=== PATIENT | male | born 1940 | race Caucasian/White ===

== ENCOUNTER → 2020-05-03 13:21 | Outpatient (BNVA) | payer MEDICARE, OTHER, SELFPAY | PROVIDERS: Family Provider Family Medicine; PCP Family Medicine; Visit Provider Urology | DX: C67.4 Malignant neoplasm of posterior wall of bladder (principal) | CPT/HCPCS: 81001 ==

== ENCOUNTER → 2021-05-01 12:59 | Outpatient (BNVA) | payer MEDICARE, OTHER, SELFPAY | PROVIDERS: PCP Family Medicine; Visit Provider Urology | DX: C67.4 Malignant neoplasm of posterior wall of bladder (principal) | CPT/HCPCS: 81003 ==

== ENCOUNTER → 2021-11-06 14:21 | Outpatient (BNVA) | payer MEDICARE, OTHER, SELFPAY | PROVIDERS: PCP Family Medicine; Visit Provider Urology | DX: C67.4 Malignant neoplasm of posterior wall of bladder (principal); R35.1 Nocturia | CPT/HCPCS: 81003 ==

== ENCOUNTER → 2022-03-15 10:14 | Outpatient (BNVA) | payer MEDICARE, OTHER, SELFPAY | PROVIDERS: PCP Family Medicine; Visit Provider Internal Medicine | DX: I25.10 Atherosclerotic heart disease of native coronary artery without angina pectoris (principal); I10 Essential (primary) hypertension; I48.91 Unspecified atrial fibrillation; G45.9 Transient cerebral ischemic attack, unspecified; E78.5 Hyperlipidemia, unspecified; E11.9 Type 2 diabetes mellitus without complications; Z87.891 Personal history of nicotine dependence; Z79.84 Long term (current) use of oral hypoglycemic drugs | CPT/HCPCS: 99213; 99214 ==

== ENCOUNTER → 2022-05-07 13:39 | Outpatient (BNVA) | payer MEDICARE, OTHER, SELFPAY | PROVIDERS: PCP Family Medicine; Visit Provider Urology | DX: C67.9 Malignant neoplasm of bladder, unspecified (principal); C67.4 Malignant neoplasm of posterior wall of bladder; R35.1 Nocturia | CPT/HCPCS: 52000; 81003 ==

== ENCOUNTER → 2022-11-04 10:15 | Outpatient (BNVA) | payer MEDICARE, OTHER, SELFPAY | PROVIDERS: PCP Family Medicine; Visit Provider Urology | DX: C67.9 Malignant neoplasm of bladder, unspecified (principal) | CPT/HCPCS: 52000; 81003 ==

== ENCOUNTER → 2022-12-13 09:29 | Outpatient (BNVA) | payer MEDICARE, OTHER, SELFPAY | PROVIDERS: PCP Family Medicine; Visit Provider Internal Medicine | DX: I25.10 Atherosclerotic heart disease of native coronary artery without angina pectoris (principal); I10 Essential (primary) hypertension; I48.91 Unspecified atrial fibrillation; E78.5 Hyperlipidemia, unspecified; E11.9 Type 2 diabetes mellitus without complications; Z79.84 Long term (current) use of oral hypoglycemic drugs; Z86.73 Personal history of transient ischemic attack (TIA), and cerebral infarction without residual deficits; Z87.891 Personal history of nicotine dependence | CPT/HCPCS: 99213 ==

== ENCOUNTER → 2023-09-08 14:37 | Outpatient (BNVA) | payer MEDICARE, OTHER, SELFPAY | PROVIDERS: PCP Family Medicine; Visit Provider Internal Medicine | DX: I25.10 Atherosclerotic heart disease of native coronary artery without angina pectoris (principal); I10 Essential (primary) hypertension; I48.91 Unspecified atrial fibrillation; E78.5 Hyperlipidemia, unspecified; E11.9 Type 2 diabetes mellitus without complications; Z86.73 Personal history of transient ischemic attack (TIA), and cerebral infarction without residual deficits; Z79.84 Long term (current) use of oral hypoglycemic drugs; Z87.891 Personal history of nicotine dependence | CPT/HCPCS: 99214 ==

== ENCOUNTER 2023-10-25 02:40 | Emergency (ER) | payer MEDICARE, OTHER, SELFPAY ==
--- NOTE | 2023-10-25 02:42 | XRR_ITS ---
PROCEDURE INFORMATION: Exam: XR Chest Exam date and time: 10/25/2023 2:55 AM Age: 83 years old Clinical indication: Chest pressure; Prior surgery; Surgery date: 6+ months; Surgery type: Loop recorder; Patient HX: C/O chest pain; Additional info: Cp TECHNIQUE: Imaging protocol: Radiologic exam of the chest. Views: 1 view. COMPARISON: CR XR chest 2V* [id number] 09/29/2017 3:45 PM FINDINGS: Lungs: Unremarkable. No consolidation. Pleural spaces: Unremarkable. No pleural effusion. No pneumothorax. Heart/Mediastinum: Left chest implanted Loop recorder device noted. Borderline cardiomegaly. Bones/joints: Unremarkable. XR/XR chest 1V portable [id number] IMPRESSION: Negative for acute chest pathology.
--- NOTE | 2023-10-25 02:46 | ED_ITS ---
HPI - Chest Pain General: Chief Complaint: Chest Pain Stated Complaint: CHEST PAIN Time Seen by Provider: 10/25/23 02:41 Source: patient and EMS Mode of arrival: EMS Limitations: no limitations History of Present Illness: 83-year-old male states he has been having intermittent chest pains over the last 3 to 4 hours. States a pressure pain in the center of his chest radiates to the left arm. No known history of coronary artery disease does have a history of A-fib. Patient states his pain improved here with nitro is currently resolved. He denies any fever dyspnea Associated symptoms: Deny abdominal pain, dyspnea, fever(s), nausea or vomiting Review of Systems Const: Denies: fever(s), chills, body aches or change in appetite ENMT: Denies: throat pain or dental pain Card: Reports: chest pain Resp: Denies: dyspnea GI: Denies: abdominal pain, nausea, vomiting or diarrhea : Denies: dysuria Musc: Denies: neck pain or back pain Skin/Breast: Denies: rash Neuro: Denies: headache(s) PFSH ED PFSH: Medical History (Updated 10/25/23 @ 04:59 by Frantz Guardado MD) ASHD (arteriosclerotic heart disease) Atrial fibrillation Diabetes HTN (hypertension) Hyperlipidemia Obesity TIA (transient ischemic attack) Surgical History History of loop recorder History of transurethral destruction of bladder lesion Family History Mother , AT AGE 89 Diabetes Father , AT AGE 60 CAD (coronary artery disease) Social History Smoking and tobacco/nicotine status: former use of tobacco/nicotine Alcohol intake: never Household members: spouse Marital status: service: Yes branch: [employer] Current occupational status: retired Physical Exam Const: COMMON NORMALS: no acute distress, patient oriented x3 and healthy appearing HENMT: COMMON NORMALS: normocephalic and atraumatic HEAD & SCALP: normocephalic and atraumatic Eye: COMMON NORMALS: Equal, round and reactive pupils present and EOMs intact bilaterally PUPIL: Yes Equal, round and reactive pupils present Neck/C-Spine: COMMON NORMALS: full ROM and supple Chest: COMMONS NORMALS: normal inspection of the chest and normal palpation of entire chest wall Resp: COMMON NORMALS: normal respiratory effort, No retractions, No use of accessory muscles and clear to auscultation bilaterally AUSCULTATION: clear to auscultation bilaterally Cardio: COMMON NORMALS: regular rate, regular rhythm and No murmurs present (Cardio) RATE: regular rate RHYTHM: regular rhythm GI: COMMON NORMALS: Normal to inspection, nondistended, normoactive bowel sounds present, Soft to palpation, non-tender and no masses PALPATION: Yes Soft to palpation Extremity: COMMON NORMALS: normal to inspection and full ROM Neuro: COMMON NORMALS: patient oriented x3, moves all extremities and no focal motor deficits Psych: COMMON NORMALS: mental status grossly normal, Normal thought process present and cooperative THOUGHT PROCESS: Normal thought process present Skin: COMMON NORMALS: no rashes or lesions noted and no wounds GENERAL SKIN EXAM: no rashes or lesions noted Course Vital Signs: Vital signs: Vital Signs Temperature 98.5 F 10/25/23 02:51 Pulse Rate 51 L 10/25/23 04:25 Respiratory Rate 16 10/25/23 04:25 Blood Pressure 123/72 10/25/23 04:25 Pulse Oximetry 95 10/25/23 04:25 MDM - Chest Pain Medical Decision Making Patient presents for chest pain its been resolved since he has been here he states he has had reflux before and it felt similar his initial repeat troponins here are normal EKGs here is normal as well. He has no signs of pulm embolism or dissection no signs of acute coronary syndrome. He is to follow-up with his family and consumer sciences professor Dr. Hill. I did inform he has pain he is to return if worsening. Medical Records I reviewed the patient's medical records. Lab Data I reviewed the patient's lab results. 10/25/23 03:10 10/25/23 03:10 Radiology Impressions Chest X-Ray 10/25/23 02:42 IMPRESSION: Negative for acute chest pathology. Laboratory Results WBC 6.85 10^3/uL (3.29-11.43) 10/25/23 03:10 RBC 4.19 10^6/uL (3.85-5.65) 10/25/23 03:10 Hgb 13.90 g/dL (11.27-16.99) 10/25/23 03:10 Hct 40.1 % (37-53) 10/25/23 03:10 MCV 95.7 fl (82-101) 10/25/23 03:10 MCH 33.2 pg (27-33) H 10/25/23 03:10 MCHC 34.7 g/dL (30-55) 10/25/23 03:10 RDW 13.1 % (12.1-15.1) 10/25/23 03:10 Plt Count 203 10^3/cmm (157-399) 10/25/23 03:10 MPV 8.6 fL (7.4-10.4) 10/25/23 03:10 Neut % (Auto) 61.2 % 10/25/23 03:10 Lymph % (Auto) 23.9 % 10/25/23 03:10 [place] % (Auto) 11.8 % 10/25/23 03:10 Eos % (Auto) 2.5 % 10/25/23 03:10 Baso % (Auto) 0.3 % 10/25/23 03:10 Neut # (Auto) 4.19 10^3/uL (1.8-7.7) 10/25/23 03:10 Lymph # (Auto) 1.6 10^3/uL (0.8-4.8) 10/25/23 03:10 [place] # (Auto) 0.8 10^3/uL (0.2-0.9) 10/25/23 03:10 Eos # (Auto) 0.2 10^3/uL (0.0-0.8) 10/25/23 03:10 Baso # (Auto) 0.0 10^3/uL (0.0-0.1) 10/25/23 03:10 Nucleated RBC % (auto) 0 % 10/25/23 03:10 Nucleated RBCs # 0.0 /100WBC 10/25/23 03:10 PT 12.80 SECONDS (12.1-14.9) 10/25/23 03:10 INR 0.93 (0.8-1.2) 10/25/23 03:10 Sodium 138 mmol/L (136-145) 10/25/23 03:10 Potassium 4.1 mmol/L (3.5-5.1) 10/25/23 03:10 Chloride 104 mmol/L (98-107) 10/25/23 03:10 Carbon Dioxide 24 mmol/L (22-29) 10/25/23 03:10 Anion Gap 14.1 (5-19) 10/25/23 03:10 BUN 21 mg/dL (8-23) 10/25/23 03:10 Creatinine 1.1 mg/dL (0.7-1.2) 10/25/23 03:10 GFR Calculation Not Reportable 10/25/23 03:10 Glucose 122 mg/dL (65-115) H 10/25/23 03:10 Calculated Osmolality 290 mOsm/kg (285-295) 10/25/23 03:10 Calcium 9.5 mg/dL (8.5-10.5) 10/25/23 03:10 Total Bilirubin 0.3 mg/dL (0.15-1.2) 10/25/23 03:10 AST 14 U/L (0-40) 10/25/23 03:10 ALT 13 U/L (0-41) 10/25/23 03:10 Alkaline Phosphatase 44 U/L (40-130) 10/25/23 03:10 Troponin T Baseline 13 ng/L (0-15) 10/25/23 03:10 Troponin T 120 Minute 12.35 ng/L (0-15) 10/25/23 04:25 Delta Troponin T -0.65 ABS# (0-10) L 10/25/23 04:25 Total Protein 6.7 g/dL (6.6-8.7) 10/25/23 03:10 Albumin 4.0 g/dL (3.5-5.2) 10/25/23 03:10 Globulin 2.7 g/dL (1.3-4.6) 10/25/23 03:10 Lipase 16 U/L (13-60) 10/25/23 03:10 XR interpretation done by ED provider, pending radiology final review ED provider radiology interpretation(s): cxr no acute abnormality EKG Data EKG 1: I personally reviewed and interpreted this EKG as follows: EKG interpretation date: 10/25/23 EKG interpretation time: 02:46 Interpretation: sinus demarco hr [address] or t wave abnormalities qrs 104 qtc 408 Discharge Plan Discharge Patient Disposition: Home Clinical Impression: Chest pain Condition: Stable Prescriptions: No Action lidocaine HCl 2 % jelly 20 ml INTRA-URET ONCE Qty: 1 0RF multivitamin Tablet 1 tab PO DAILY clopidogrel 75 mg tablet 75 mg PO DAILY amlodipine-benazepril [Lotrel] 5-10 mg capsule 1 cap PO DAILY Januvia 100 mg tablet 100 mg PO DAILY magnesium 200 mg tablet 400 mg PO DAILY famotidine 20 mg tablet 20 mg PO DAILY propafenone 225 mg tablet 225 mg PO Q8H Qty: 270 3RF Discharge Orders: Discharge ED (Routine); Ordered 10/25/23 Ordered By: Frantz Guardado Referrals: Tommy Fermin M.D [Physician] - 1-3 days Discharge Diet: Advance as tolerated Discharge Activity: Resume usual activity Patient Instructions: Chest Pain (ED) Coding Level of Care Code ED Salesperson Art [employer] for Lisa Graff
--- NOTE | 2023-10-25 02:46 | ECG_ITS ---
[facility] Test Date: 2023-10-25 Pat Name: Gustavo Jhaveri Department: Room: Gender: Male Kitchenhand: : 1940 Requested By: Frantz Guardado Order Number: [id number] Jose Miguel MD: Uriel Bustamante M.D. Measurements Intervals [place] Rate: 52 P: 36 WV: 240 QRS: 31 QRSD: 104 T: 56 QT: 428 QTc: 400 Interpretive Statements SINUS BRADYCARDIA WITH FIRST DEGREE AV BLOCK Compared to ECG 04/26/2017 09:15:48 First degree AV block now present Inferior myocardial infarct finding no longer present Electronically Signed On 10-25-2023 13:51:07 CREATIVE SERVICES INTERN by Uriel Bustamante M.D. [id number]
[2023-10-25 02:51] VITALS: BP 153/74; PULSE 59; RESP 18; TEMP 36.9; O2SAT 94
[2023-10-25 03:20] VITALS: BP 117/63; PULSE 50; RESP 16; O2SAT 97
[2023-10-25 03:24] LABS: Basophils % 0.3 %; Eosinophils # 0.2 10^3/uL (0.0-0.8); Eosinophils % 2.5 %; Hematocrit 40.1 % (37-53); Lymphocytes # 1.6 10^3/uL (0.8-4.8); Lymphocytes % 23.9 %; Mean Corpuscular HGB Conc 34.7 g/dL (30-55); Mean Corpuscular Hemoglobin 33.2 pg (27-33); Mean Corpuscular Volume 95.7 fl (82-101); Mean Platelet Volume 8.6 fL (7.4-10.4); Monocytes # 0.8 10^3/uL (0.2-0.9); Monocytes % 11.8 %; Neutrophils # 4.19 10^3/uL (1.8-7.7); Neutrophils % 61.2 %; Nucleated Red Blood Cells % 0 %; Platelet Count 203 10^3/cmm (157-399); Red Blood Count 4.19 10^6/uL (3.85-5.65); Red Cell Distribution Width 13.1 % (12.1-15.1); White Blood Count 6.85 10^3/uL (3.29-11.43)
[2023-10-25 03:38] LABS: INR 0.93 (0.8-1.2)
[2023-10-25 03:41] LABS: Troponin(5th) Baseline 13 ng/L (0-15)
[2023-10-25 03:45] LABS: Alanine Aminotransferase 13 U/L (0-41); Alkaline Phosphatase 44 U/L (40-130); Anion Gap 14.1 (5-19); Aspartate Amino Transferase 14 U/L (0-40); Blood Urea Nitrogen 21 mg/dL (8-23); Calcium 9.5 mg/dL (8.5-10.5); Carbon Dioxide 24 mmol/L (22-29); Chloride 104 mmol/L (98-107); Globulin 2.7 g/dL (1.3-4.6); Glucose 122 mg/dL (65-115); Lipase 16 U/L (13-60); Osmolality Calculated 290 mOsm/kg (285-295); Potassium 4.1 mmol/L (3.5-5.1); Sodium 138 mmol/L (136-145); Total Bilirubin 0.3 mg/dL (0.15-1.2); Total Protein 6.7 g/dL (6.6-8.7)
[2023-10-25 04:25] VITALS: BP 123/72; PULSE 51; RESP 16; O2SAT 95
[2023-10-25 04:49] LABS: Troponin 5 2HR 12.35 ng/L (0-15); Troponin 5 2HR Delta -0.65 ABS# (0-10)
[2023-10-25 05:11] VITALS: BP 123/72; PULSE 51; RESP 16; TEMP 36.9; O2SAT 95
== END 2023-10-25 05:11 | disposition home or self-care (01) ==
PROVIDERS: Emergency Provider Emergency Medicine; PCP Family Medicine
DX: R07.9 Chest pain, unspecified (principal); Z79.02 Long term (current) use of antithrombotics/antiplatelets; E11.9 Type 2 diabetes mellitus without complications; I10 Essential (primary) hypertension; E78.5 Hyperlipidemia, unspecified; Z86.73 Personal history of transient ischemic attack (TIA), and cerebral infarction without residual deficits; Z87.891 Personal history of nicotine dependence
CPT/HCPCS: 71045; 80053; 83690; 84484; 85025; 85610; 93005; 93010; 99285

== ENCOUNTER → 2024-11-29 15:26 | Outpatient (BNVA) | payer MEDICARE, OTHER, SELFPAY | PROVIDERS: PCP Family Medicine; Visit Provider Internal Medicine | DX: I25.10 Atherosclerotic heart disease of native coronary artery without angina pectoris (principal); I10 Essential (primary) hypertension; I48.91 Unspecified atrial fibrillation; G45.9 Transient cerebral ischemic attack, unspecified; E78.5 Hyperlipidemia, unspecified; E11.9 Type 2 diabetes mellitus without complications; Z86.73 Personal history of transient ischemic attack (TIA), and cerebral infarction without residual deficits; Z79.84 Long term (current) use of oral hypoglycemic drugs | CPT/HCPCS: 99213 ==

== ENCOUNTER 2025-01-21 09:51 | Inpatient (IN) | payer MEDICARE, OTHER, SELFPAY ==
[2025-01-21] VITALS (15 sets, daily range): BP systolic 96–159; BP diastolic 59–108; PULSE 58–80; RESP 16–22; TEMP 36.6–37.1; O2SAT 91–97; BMI 30.2
--- NOTE | 2025-01-21 09:58 | ECG_ITS ---
[facility] Test Date: 2025-01-21 Pat Name: Gustavo Jhaveri Department: Room: Gender: Male Personal Assistant: : 1940 Requested By: Trey Bonilla Order Number: [id number] Reading MD: ANAMARIA SIERRA Measurements Intervals [place] Rate: 74 P: 62 VT: 249 QRS: 63 QRSD: 97 T: 54 QT: 309 QTc: 344 Interpretive Statements SINUS RHYTHM WITH FIRST DEGREE AV BLOCK NONSPECIFIC ST & T-WAVE ABNORMALITY Compared to ECG 10/25/2023 02:46:47 T-wave abnormality now present Sinus bradycardia no longer present Electronically Signed On 01-25-2025 23:44:28 RESOLUTION ANALYST by ANAMARIA SIERRA [email or web address]
--- NOTE | 2025-01-21 10:01 | CT_ITS ---
WS: [id number] CT HEAD NONCONTRAST HISTORY: LEFT SIDED WEAKNESS TECHNIQUE: Contiguous axial imaging performed through the brain. Bone and soft tissue windows. Sagittal and coronal reformats reviewed. All CT scans at [facility] use at least one of these dose optimization techniques: automated exposure control; mA and/or kV adjustment per patient size (includes targeted exams where dose is matched to clinical indication); or iterative reconstruction. DLP: 1118.33 mGy COMPARISON: 12/27/2016 No acute intracranial hemorrhage, midline shift or mass effect. Mild atrophy and mild small vessel disease. No prior infarcts. No new area of sulcal effacement or acute edema. Ventricles: Normal size with no hydrocephalus. No inferior displacement of the cerebellar tonsils. Paranasal sinuses: As visualized are clear. Mastoid air cells: Cerumen in the external auditory canals. Mastoid air cells are clear. Calvarium and scalp: Skull is intact with no soft tissue edema or swelling. Scattered plaque is noted in the distal vertebral arteries and through the carotid cavernous sinuses. CT/CT head thrombolytic 70208 IMPRESSION: 1. No acute intracranial hemorrhage or edema. 2. Mild atrophy and mild chronic small vessel ischemic changes. Notified Trey Jaimes DO at 01/21/2025 10:12 AM.
--- NOTE | 2025-01-21 10:04 | W.ED.NEUROSD ---
HPI - Neuro Symptoms/Deficit General: Chief Complaint: Neuro Symptoms/Deficit Stated Complaint: stroke alert Time Seen by Provider: 01/21/25 09:53 History of Present Illness: 84-year-old male presents emergency room via EMS with left-sided weakness his last known well was around 8 AM presented at 9[address] patient seen in the [address] suite shortly after arrival. NIH score of 5. Patient is not on any anticoagulants initially blood pressure was elevated but that resolved before he was given any medications. He denies any chest pain no recent fever sweats or chills. Does have a history of previous TIAs. He also has a history of atrial fibrillation he is not on any anticoagulants. Associated symptoms: Deny chest pain Related Data Home Medications ?Medication ?Instructions ?Recorded ?Confirmed amlodipine 5 mg-benazepril 10 mg 1 cap PO DAILY 04/27/20 01/21/25 capsule (Lotrel) clopidogrel 75 mg tablet 75 mg PO DAILY 04/27/20 01/21/25 sitagliptin phosphate 100 mg 100 mg PO DAILY 04/27/20 01/21/25 tablet (Januvia) Previous Rx's ?Medication ?Instructions ?Recorded propafenone 225 mg tablet 225 mg PO Q8H #270 tabs 02/24/24 Allergies Allergy/AdvReac Type Severity Reaction Status Date / Time hydromorphone (From Dilaudid) Allergy Unknown Unknown Verified 11/29/24 15:34 influenza virus vaccine, Allergy Unknown Unknown Verified 11/29/24 15:34 specific Iodinated Contrast Media Allergy Unknown Unknown Verified 11/29/24 15:34 levofloxacin (From Levaquin) Allergy Unknown Unknown Verified 11/29/24 15:34 metformin AdvReac Unknown ADR-Dizzine Verified 11/29/24 15:34 ss Review of Systems Const: Denies: fever(s) or chills Card: Denies: chest pain Resp: Denies: dyspnea GI: Denies: abdominal pain : Denies: dysuria, urinary frequency or urinary urgency Musc: Denies: neck pain or back pain Skin/Breast: Denies: rash PFSH ED PFSH: Medical History (Updated 01/21/25 @ 16:37 by Trey Jaimes DO) Obesity Diabetes Hyperlipidemia TIA (transient ischemic attack) ASHD (arteriosclerotic heart disease) HTN (hypertension) Atrial fibrillation Surgical History History of transurethral destruction of bladder lesion History of loop recorder Family History Mother , AT AGE 89 Diabetes Father , AT AGE 60 CAD (coronary artery disease) Social History Smoking and tobacco/nicotine status: heavy tobacco/nicotine user (quit 1986) Alcohol intake: never Household members: spouse Marital status: service: Yes branch: [employer] Current occupational status: retired NIH stroke score NIHSS: Level Of Consciousness - 1a: 0 Level Of Consciousness Questions - 1b: Both Correct Level Of Consciousness Commands - 1c: Both Correct Best Gaze - 2: Normal Visual [place] - 3: No Visual Loss Facial Palsy - 4: Normal Motor Arm Right - 5: No Drift Motor Arm Left - 5: Drift Motor Leg Right - 6: No Drift Motor Leg Left - 6: Drift Limb Ataxia - 7: Present In Two Limbs Sensory - 8: Mild To Moderate Loss Best Language - 9: No Aphasia Dysarthia - 10: Normal Extinction And Inattention - 11: 0 Score: Total Score: 5 Physical Exam Const: COMMON NORMALS: no acute distress GENERAL APPEARANCE: cooperative and comfortable ORIENTATION/CONSCIOUSNESS: Yes awake, Yes oriented to person, Yes oriented to place and Yes oriented to time HENMT: COMMON NORMALS: normocephalic, atraumatic and hearing grossly normal bilaterally HEAD & SCALP: normocephalic and atraumatic Resp: COMMON NORMALS: normal respiratory effort, No retractions, No use of accessory muscles and clear to auscultation bilaterally AUSCULTATION: clear to auscultation bilaterally Cardio: COMMON NORMALS: regular rate, regular rhythm and No murmurs present (Cardio) RATE: regular rate RHYTHM: regular rhythm GI: COMMON NORMALS: Soft to palpation and No hepatosplenomegaly present AUSCULTATION: Yes normoactive bowel sounds PALPATION: Yes Soft to palpation, No Tenderness to palpation present (GI), No Guarding due to palpation present (GI) and Yes No hepatosplenomegaly present Extremity: COMMON NORMALS: normal to inspection, capillary refill normal, no clubbing, cyanosis or edema, no calf tenderness and no pedal edema Neuro: SENSORIUM/ORIENTATION: Yes oriented to person, Yes oriented to place and Yes oriented to time OTHER: CA NIH score. Patient has ataxia and left arm and leg with decreased sensation no facial asymmetry weakness in the left arm and leg as well. Total NIH score is 5 Skin: COMMON NORMALS: no rashes or lesions noted GENERAL SKIN EXAM: no rashes or lesions noted Course Vital Signs: Vital signs: Vital Signs Temperature 98.8 F 01/21/25 10:19 Pulse Rate 73 01/21/25 10:01 Respiratory Rate 20 H 01/21/25 10:01 Blood Pressure 159/108 01/21/25 10:01 Pulse Oximetry 96 01/21/25 10:01 Oxygen Delivery Me thod Room Air 01/21/25 10:01 MDM - Neuro Symptoms/Deficit Medical Decision Making Discussed risks and benefits with the patient he would prefer to go ahead and anticoagulate. He was given BONI in case. Dr. Whalen who is on-call for stroke also came down concurred with our assessment and recommendations that we give that TNKase. CT of the head read by Dr. Cline was negative blood glucose was normal. Will admit for acute CVA. He said problems with contrast in the past. He preferred not to have contrast if he can help with discussed with Dr. Whalen she recommend carotid ultrasound he can do an MRA of the head at a later date she did not feel he needed any further advanced imaging at this time unless symptoms change. Medical Records I reviewed the patient's medical records. Lab Data I reviewed the patient's lab results. 01/21/25 10:07 01/21/25 10:[address] 01/21/25 10:01 IMPRESSION: 1. No acute intracranial hemorrhage or edema. 2. Mild atrophy and mild chronic small vessel ischemic changes. Notified Trey Jaimes DO at 01/21/2025 10:12 AM. Laboratory Results WBC 5.63 10^3/uL (3.29-11.43) 01/21/25 10:07 RBC 4.92 10^6/uL (3.85-5.65) 01/21/25 10:07 Hgb 15.80 g/dL (11.27-16.99) 01/21/25 10:07 Hct 47.5 % (37-53) 01/21/25 10:07 MCV 96.5 fl (82-101) 01/21/25 10:07 MCH 32.1 pg (27-33) 01/21/25 10:07 MCHC 33.3 g/dL (30-55) 01/21/25 10:07 RDW 13.0 % (12.1-15.1) 01/21/25 10:07 Plt Count 251 10^3/cmm (157-399) 01/21/25 10:07 MPV 8.4 fL (7.4-10.4) 01/21/25 10:07 Neut % (Auto) 56.1 % 01/21/25 10:07 Lymph % (Auto) 29.3 % 01/21/25 10:07 [place] % (Auto) 12.1 % 01/21/25 10:07 Eos % (Auto) 1.8 % 01/21/25 10:07 Baso % (Auto) 0.5 % 01/21/25 10:07 Neut # (Auto) 3.16 10^3/uL (1.8-7.7) 01/21/25 10:07 Lymph # (Auto) 1.7 10^3/uL (0.8-4.8) 01/21/25 10:07 [place] # (Auto) 0.7 10^3/uL (0.2-0.9) 01/21/25 10:07 Eos # (Auto) 0.1 10^3/uL (0.0-0.8) 01/21/25 10:07 Baso # (Auto) 0.0 10^3/uL (0.0-0.1) 01/21/25 10:07 Nucleated RBC % (auto) 0 % 01/21/25 10:07 Nucleated RBCs # 0.0 /100WBC 01/21/25 10:07 PT 12.60 SECONDS (12.1-14.9) 01/21/25 10:07 INR 0.88 (0.8-1.2) 01/21/25 10:07 APTT 28.7 SECONDS (23.9-36.7) 01/21/25 10:07 Sodium 137 mmol/L (136-145) 01/21/25 10:07 Potassium 4.1 mmol/L (3.5-5.1) 01/21/25 10:07 Chloride 103 mmol/L (98-107) 01/21/25 10:07 Carbon Dioxide 23 mmol/L (22-29) 01/21/25 10:07 Anion Gap 15.1 (5-19) 01/21/25 10:07 BUN 18 mg/dL (8-23) 01/21/25 10:07 Creatinine 1.0 mg/dL (0.7-1.2) 01/21/25 10:07 GFR Calculation Not Reportable 01/21/25 10:07 Glucose 124 mg/dL (65-115) H 01/21/25 10:07 POC Glucose 124 mg/dL (70-110) H 01/21/25 10:01 Calculated Osmolality 287 mOsm/kg (285-295) 01/21/25 10:07 Calcium 9.4 mg/dL (8.5-10.5) 01/21/25 10:07 Total Bilirubin 0.7 mg/dL (0.15-1.2) 01/21/25 10:07 AST 17 U/L (0-40) 01/21/25 10:07 ALT 16 U/L (0-41) 01/21/25 10:07 Alkaline Phosphatase 53 U/L (40-130) 01/21/25 10:07 Total Protein 7.0 g/dL (6.6-8.7) 01/21/25 10:07 Albumin 4.4 g/dL (3.5-5.2) 01/21/25 10:07 Globulin 2.6 g/dL (1.3-4.6) 01/21/25 10:07 All radiology interpretation(s) finalized by discharge Discharge Plan Discharge Patient Disposition: Admitted As Inpatient Admit Provider: Vivek Gurrola Clinical Impression: Cerebrovascular accident, Atrial fibrillation, HTN (hypertension), ASHD (arteriosclerotic heart disease) Condition: Stable Coding Level of Care Code ED Manager Compensation for Lisa Graff
[2025-01-21] MEDS: tenecteplase 50mg Kit (STROKE) 22 MG IVP (10:09)
[2025-01-21 10:16] LABS: Basophils % 0.5 %; Eosinophils # 0.1 10^3/uL (0.0-0.8); Eosinophils % 1.8 %; Hematocrit 47.5 % (37-53); Lymphocytes # 1.7 10^3/uL (0.8-4.8); Lymphocytes % 29.3 %; Mean Corpuscular HGB Conc 33.3 g/dL (30-55); Mean Corpuscular Hemoglobin 32.1 pg (27-33); Mean Corpuscular Volume 96.5 fl (82-101); Mean Platelet Volume 8.4 fL (7.4-10.4); Monocytes # 0.7 10^3/uL (0.2-0.9); Monocytes % 12.1 %; Neutrophils # 3.16 10^3/uL (1.8-7.7); Neutrophils % 56.1 %; Nucleated Red Blood Cells % 0 %; Platelet Count 251 10^3/cmm (157-399); Red Blood Count 4.92 10^6/uL (3.85-5.65); White Blood Count 5.63 10^3/uL (3.29-11.43)
[2025-01-21 10:16] LABS: Glucose Point of Care 124 mg/dL (70-110)
[2025-01-21 10:25] LABS: INR 0.88 (0.8-1.2)
[2025-01-21 10:26] LABS: Partial Thromboplastin Time 28.7 SECONDS (23.9-36.7)
[2025-01-21 10:29] LABS: Alanine Aminotransferase 16 U/L (0-41); Albumin Level 4.4 g/dL (3.5-5.2); Alkaline Phosphatase 53 U/L (40-130); Anion Gap 15.1 (5-19); Aspartate Amino Transferase 17 U/L (0-40); Blood Urea Nitrogen 18 mg/dL (8-23); Calcium 9.4 mg/dL (8.5-10.5); Carbon Dioxide 23 mmol/L (22-29); Chloride 103 mmol/L (98-107); Creatinine Clr Calc Pharmacy 67.1979; Globulin 2.6 g/dL (1.3-4.6); Glucose 124 mg/dL (65-115); Osmolality Calculated 287 mOsm/kg (285-295); Potassium 4.1 mmol/L (3.5-5.1); Sodium 137 mmol/L (136-145); Total Bilirubin 0.7 mg/dL (0.15-1.2)
--- NOTE | 2025-01-21 10:58 | USCV_ITS ---
Gustavo Jhaveri Age: 84 Gender: M : 1940 Exam Date: 01/21/2025 12:02 Ordering Phys: Trey Jaimes DO Technologist: CT Exam Location: [facility] [place] Indication: cva Risk Factors: Previous Vascular Surgery: Right Brachial BP: / Left Brachial BP: / Right Left Velocity (cm/s) Spectral Plaque Velocity (cm/s) Spectral Plaque Syst/Diast Broadening Syst/Diast Broadening 111.20/21.70 Prox CCA 96.00 / 17.80 131.20/27.20 Mid CCA 102.80/ 19.50 103.90/23.50 Distal CCA 82.90 / 16.80 96.20/ 14.60 Prox ICA 84.60 / 13.00 44.30/ 17.60 Mid ICA 56.80 / 14.10 61.20/ 22.20 Distal ICA 58.70 / 17.80 100.80 ECA 69.50 0.90 ICA/CCA 1.00 Antegrade Vertebral Antegrade 45.30/ 7.00 cm/s 43.30/ 10.70 cm/s Tri Subclavian Tri 130.1 113.0 0 0 FINDINGS Comparison:. 04/22/16 No significant elevation of systolic or diastolic velocities. Mild progression of calcified carotid bifurcation plaque since 2014. Antegrade vertebral arteries. CONCLUSIONS Bilateral ICA stenosis less than 50%. Carotid atherosclerosis has progressed since the prior exam from 2015. Dr. Anna Cline DO (Electronically Signed) Final Date: 21 January 2025 12:45 S
--- NOTE | 2025-01-21 10:58 | USCV_ITS ---
Gustavo Jhaveri Age: 84 Gender: M : 1940 Exam Date: 01/21/2025 11:39 Ordering Phys: Trey Jaimes DO Technologist: CT Exam Location: [facility] – [place] Indication: hx of afib BP: 139 / 72 HR: 63 Rhythm: Sinus Technical Quality: Adequate MEASUREMENTS (Male / Female) Normal Values 2D ECHO LVOT Diameter 2.1 cm LV Ejection Fraction MOD 4C 69.1 % LV Ejection Fraction MOD 2C 67.1 % LV Ejection Fraction 2C AL 68.9 % LA Diameter 3.9 cm RA Systolic Volume 4C AL 49.8 ml RA Systolic Volume 4C MOD 49.9 ml LA Sys Volume AL 41.6 cm cubed LA Sys Volume Index AL 19.1 cm cubed/m squared Aorta at Sinotubular Diameter 3.0 cm IVC Diameter 2.0 cm M-MODE LA Ao Ratio MM 1.4 AV Cusp Separation MM 2.3 cm DOPPLER AV Peak Velocity 140.0 cm/s LVOT Peak Velocity 116.0 cm/s AV Area Cont Eq vti 3.2 cm squared AV Area Cont Eq pk 2.9 cm squared MV Peak Velocity 79.0 cm/s MV Area PHT 2.8 cm squared Mitral E to A Ratio 0.7 TR Peak Velocity 146.5 cm/s TR Peak Gradient 8.6 mmHg TR Mean Velocity 106.0 cm/s TR Mean Gradient 5.2 mmHg TR Velocity Time Integral 25.8 cm TV Peak E Velocity 63.0 cm/s PV Peak Velocity 96.0 cm/s FINDINGS Left Ventricle Left ventricle is normal in size. LV systolic function is normal with EF of 55 to 60%. No regional wall motion abnormalities are seen. Grade 1 diastolic dysfunction. Right Ventricle Normal in size and function Right Atrium Normal in size Left Atrium Normal in size Mitral Valve Structurally normal mitral valve. Mild mitral regurgitation. Aortic Valve Structurally normal aortic valve. No significant stenosis or regurgitation. Tricuspid Valve Mild tricuspid regurgitation. Insufficient TR jet to evaluate RVSP. 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
[2025-01-21 17:09] LABS: Add Urine Microscopic? NO
[2025-01-21 17:13] LABS: Bilirubin Urine Negative (Negative); Blood Urine Negative (Negative); Glucose Urine UA Negative (Normal); Ketones Urine 1+ (Negative); Leukocyte Esterase Urine Negative (Negative); Nitrate Urine Negative (Negative); Protein Urine Negative (Negative); Specific Gravity, Urine 1.012 (1.005-1.030); Urine Appearance Clear (CLEAR); Urine Color Yellow (Yellow); Urobilinogen Urine 0.2 mg/dL (Negative); pH Urine 6.5 (5-7)
[2025-01-21 17:20] LABS: Amphetamines Screen Urine Negative (Negative); Barbiturates Screen Urine Negative (Negative); Benzodiazepines Screen Urine Negative (Negative); Cocaine Screen Urine Negative (Negative); Opiate Screen Urine Negative (Negative); PCP Screen Urine Negative (Negative); THC Screen Urine Negative (Negative)
--- NOTE | 2025-01-21 17:25 | P.PNCC_ITS ---
Stroke Alert Activation ED Arrival Date: 01/21/25 ED Arrival Time: 09:58 ED Physican at Bedside: 10:04 Last Known Normal/at Baseline: 1-2 hours ago Other Last Known Well Infomation: Stroke alert was called coincident with the patient's arrival with left-sided weakness, ataxia and left-sided numbness. He got up, got dressed and sat down in his chair at 8 clock this morning. When he got up to go to breakfast at 830 he discovered that his left leg would not hold him up. He arrived here and went straight to CAT scan at 1001. I called the emergency department and learned that Dr. Jaimes was with the patient and left for that I would come to the ER if needed. Dr. Jaimes evaluated the patient quickly and determined that he had significant left-sided weakness, his blood pressure was elevated and he needed a dosage of labetalol but he had no other contraindications to thrombolytic therapy and we agreed that he should receive TNK. His bolus was given at 1015. The patient said his he had a TIA in the past maybe 30 years ago when I saw him then. He was hospitalized by Dr. Ferguson for syncope in 2016 and at that time he was said to have had a previous stroke and he was on Eliquis for atrial fibrillation. Subsequently he was taken off of blood thinners because of side effects and he is followed in cardiac clinic. He is on Plavix but not on anticoagulation. His atrial fibrillation has been under control. His other risk factors for stroke include diabetes and coronary disease. Hypertension. The patient says his left side is numb. He is still complaining of weakness on the left. On examination he has significant left-sided numbness fairly dense and suggesting a thalamic stroke. Stroke Alert Activated by: Triage Stroke Alert Activation Time: 10: Stroke MD @ Bedside Time: 10:01 NIH Stroke Scale Time: 10:15 NIH stroke score NIHSS: Level Of Consciousness - 1a: 0 Level Of Consciousness Questions - 1b: Both Correct Level Of Consciousness Commands - 1c: Both Correct Best Gaze - 2: Normal Visual [place] - 3: No Visual Loss Facial Palsy - 4: Normal Motor Arm Right - 5: No Drift Motor Arm Left - 5: Drift Motor Leg Right - 6: No Drift Motor Leg Left - 6: Drift Limb Ataxia - 7: Absent Sensory - 8: Mild To Moderate Loss Best Language - 9: No Aphasia Dysarthia - 10: Normal Extinction And Inattention - 11: 0 Score: Total Score: 3 Stroke Alert Data/Treatment Time to CT of Head: 10:01 CT Results Time: 10:08 CT Impression: Normal for age Stroke Risk Factors: atrial fibrillation, coronary artery disease, hypertension and diabetes mellitus tPA Started Date: 01/21/25 tPA Started Time: tPA Started - Time: 10:15 tPA Admin Prior to Arrival: No Patient & Family Educated on: Cause of Stroke, Treament Plan and tPA Risks/Benefits Standardized Stroke Orders Used: Yes Critical Care Time Critical Care Time: 30 - 74 mins A&P Assessment and plan (1) Acute stroke due to ischemia: The patient presented with an acute stroke consisting of left leg more than arm weakness and on my exam he continues to have left leg more than left arm weakness and fairly dense left hemisensory defect suggesting this may be a thalamic stroke or potentially subcortical internal capsule lacunar on the right. Fortunately he presented in time to receive tPA within 2 hours of onset of symptoms and so his prognosis is relatively good. He required a dose of labetalol to get his blood pressure down and the nurses advised to watch closely and keep his blood pressure under control since he received TNK. He will be admitted the ICU to the hospitalist service. I will be available if needed. I talked to the patient about his diagnosis and went over the advantages and disadvantages of thrombolytic treatment and he gave informed consent. (2) Atrial fibrillation: Qualifiers: Atrial fibrillation type: paroxysmal Qualified Code(s): I48.0 - Paroxysmal atrial fibrillation (3) HTN (hypertension): (4) Diabetes: PDMP PDMP Reviewed: Not Reviewed Coding Level of Care Code Acute Code for [facility] Diagnoses Acute stroke due to ischemia I63.9 Paroxysmal atrial fibrillation I48.0 Atrial fibrillation type: paroxysmal HTN (hypertension) I10 Diabetes E11.9
--- NOTE | 2025-01-21 17:25 | PM.HP ---
Providers/Chief Complaint Admitting Physician: Vivek Gurrola Primary Care Provider: Lance العراقي MD Chief Complaint: stroke alert History of Present Illness 84-year-old gentleman with history of 2 TIAs, obesity, diabetes, HLD, CAD, A-fib, not anticoagulation due to intolerance of warfarin and DOAC's which he had already tried in the past, experienced left upper and lower extremity weakness and lack of coordination but also some pain in the left side around 8 AM this morning on presentation to the ER stroke code was called, he was assessed with CT head which did not show bleeding, and a score of 5, and consultation with neurology she underwent treatment with TNK with improvement in symptoms of left upper and lower extremity weakness. Further workup was recommended with carotid duplex, and follow-up for outpatient testing with MRA. Mildly hypertensive in ER, 144/84, but reports at home blood pressure usually running normal to on the low side, 100-teens over 50s whenever he monitors it. He also has diabetes, but states that has been well-controlled with A1c being 5.3 last time. Review of Systems Const: Denies: fever(s), chills, body aches or malaise ENMT: Denies: throat pain Card: Denies: chest pain, edema, pre-syncope or dyspnea on exertion Resp: Denies: dyspnea, productive cough, change in phlegm color or hemoptysis GI: Denies: abdominal pain, nausea, vomiting, diarrhea, constipation, hematochezia or melena : Denies: flank pain, difficulty urinating, urinary frequency or hematuria Musc: Denies: back pain, joint swelling or joint redness Skin/Breast: Denies: rash or new lesions Neuro: Reports: weakness in extremities and lack of coordination Medications/Allergies Home Medications ?Medication ?Instructions ?Recorded ?Confirmed ?Last Taken ?Type amlodipine 5 mg-benazepril 10 mg 1 cap PO DAILY 04/27/20 01/21/25 Unknown History capsule (Lotrel) clopidogrel 75 mg tablet 75 mg PO DAILY 04/27/20 01/21/25 Unknown History sitagliptin phosphate 100 mg 100 mg PO DAILY 04/27/20 01/21/25 Unknown History tablet (Januvia) propafenone 225 mg tablet 225 mg PO Q8H #270 tabs 02/24/24 01/21/25 Unknown Rx Allergies Allergy/AdvReac Type Severity Reaction Status Date / Time hydromorphone (From Dilaudid) Allergy Unknown Unknown Verified 11/29/24 15:34 influenza virus vaccine, Allergy Unknown Unknown Verified 11/29/24 15:34 specific Iodinated Contrast Media Allergy Unknown Unknown Verified 11/29/24 15:34 levofloxacin (From Levaquin) Allergy Unknown Unknown Verified 11/29/24 15:34 metformin AdvReac Unknown ADR-Dizzine Verified 11/29/24 15:34 ss PFSH Acute PFSH: Medical History Obesity Diabetes Hyperlipidemia TIA (transient ischemic attack) ASHD (arteriosclerotic heart disease) HTN (hypertension) Atrial fibrillation Surgical History (Updated 01/21/25 @ 17:53 by Vivek Gurrola MD) S/P cataract extraction S/P tonsillectomy H/O bone graft LEFT WRIST History of transurethral destruction of bladder lesion History of loop recorder Family History Mother , AT AGE 89 Diabetes Father , AT AGE 60 CAD (coronary artery disease) Social History Smoking and tobacco/nicotine status: heavy tobacco/nicotine user (quit 1986) Alcohol intake: never Household members: spouse Marital status: service: Yes branch: [employer] Current occupational status: retired Vitals/I&O/Wt Last Vital Signs Temp 98.8 F 01/21/25 10:19 Pulse 66 01/21/25 11:45 Resp 16 01/21/25 11:45 BP 122/67 01/21/25 11:45 Pulse Ox 93 01/21/25 11:45 O2 Del Method Room Air 01/21/25 11:45 Weight last 48 hrs Weight 89.086 kg Weight 88.904 kg Physical Exam Narrative: Accompanied by his . Const: COMMON NORMALS: patient oriented x3 and alert GENERAL APPEARANCE: cooperative ORIENTATION/CONSCIOUSNESS: Yes awake HENMT: COMMON NORMALS: oropharynx normal Neck/C-Spine: COMMON NORMALS: no JVD Resp: COMMON NORMALS: normal respiratory effort and clear to auscultation bilaterally AUSCULTATION: clear to auscultation bilaterally Cardio: COMMON NORMALS: no JVD, regular rhythm, S1 normal heart sound present, S2 normal heart sound present and No murmurs present (Cardio) RHYTHM: regular rhythm HEART SOUNDS: S1 normal heart sound present and S2 normal heart sound present GI: COMMON NORMALS: Normal to inspection, nondistended, normoactive bowel sounds present, Soft to palpation and non-tender PALPATION: Yes Soft to palpation Extremity: COMMON NORMALS: no joint enlargement and no pedal edema Neuro: COMMON NORMALS: patient oriented x3 and moves all extremities SENSORIUM/ORIENTATION: Yes alert OTHER: She is awake and alert, following directions. No difficulty tracking resultantly. No visual field defect. No visual extinction. Mildly slowed FNF on the left side, but performing properly. Mild left upper extremity drift. Moderate left lower extremity drift. No right upper or lower extremity drift. Sensory exam slightly diminished on the left compared to the right. No extinction. Skin: COMMON NORMALS: no rashes or lesions noted GENERAL SKIN EXAM: no rashes or lesions noted Data 01/21/25 10:07 01/21/25 10:07 A&P Assessment and plan (1) Acute stroke due to ischemia: Acute CVA, status post TNK with partial improvement in symptoms with partial recovery of left upper and lower extremity power, still residual deficit with left upper and lower extremity weakness/drift, as well as persistence of diminished sensation. Ataxia appears to have improved. Admission to ICU after TNK, additional workup as recommended by neurology with carotid Dopplers requested, requested also for TTE bubble study given prior TIAs and current CVA. He does have atrial fibrillation for which she has not been able to tolerate anticoagulation including warfarin and DOAC's, so has been on Plavix alone. 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 He does have diabetes but does state that previously A1c has been well-controlled. Reassess A1c. Not currently on Crestor medication seems like Would benefit from statin as he is not lipid profile is requested. Follow-up carotid Doppler. He states that blood pressure is usually well controlled at home. Monitor blood pressures. Permissive hypertension for now. Long-term target 120/80. Repeat CT head 24 hours after TNK. Hold antiplatelets for now. Resume after 24 hours. Pending PT, OT, ST assessment. Referred for MRA after discharge Follow-up with neurology awake after discharge. (2) Atrial fibrillation: Follow-up with cardiology for consideration of referral for left atrial appendage closure device. Did not tolerate anticoagulation with warfarin or DOAC's in the past as per review of cardiology documentation and discussion with him and his . Plan Left side pain has left arm, left side chest, obtain troponin. Reviewed EKG. Follow-up echocardiogram. Monitor on telemetry. History of 2 TIAs, obesity, diabetes, HLD, CAD PDMP PDMP Reviewed: Not Reviewed Attestations Medical Necessity Statement*: Admission of over 2 midnights anticipated for assessment and management following CVA, TNK treatment. Coding Level of Care Code Critical Care >/= 30 minutes Critical care time (in minutes): 35 The high probability of a clinically significant, sudden or life threatening deterioration, as referenced in this documentation, required my full and direct attention, intervention and personal management. The critical care time shown is in addition to time spent performing any reported separately billable procedures and includes the following: [x] Data and vital sign review and interpretation [x] Patient assessment, examination and intervention [x] Medication orders and management [x] Patient/Family updates as able [x] Care Coordination and Documentation. Diagnoses Acute stroke due to ischemia I63.9 Atrial fibrillation I48.91
[2025-01-21 17:37] LABS: Charge for UA Resulting for Rev
[2025-01-21 19:35] LABS: Glucose Point of Care 177 mg/dL (70-110)
--- NOTE | 2025-01-21 20:10 | PC.NURSE ---
Swallow Assessment completed @1600 by this HS. Pt was educated on importance of tucking chin to chest when taking sips of water. Pt passed swallow assessment and was given a sandwich and later milk. HS asked that the ER UC order a dinner tray for the patient and the patient's , after swallow assessment was successfully completed by the pt. No further needs verbalized by the patient or pt's at this time.
[2025-01-21] MEDS: insulin lispro 100 unit/1 mL SUBCUT (20:27)
--- NOTE | 2025-01-21 21:45 | PC.NURSE ---
Fluids running in MAR but none hanging in room. Hung 2300 normal saline early due pt not having any fluids running.
--- NOTE | 2025-01-21 21:49 | PC.NURSE ---
Pt requested to continue taking home cardiac med propafenone. Dr. Robb notified, received verification for pt to continue home dose of propafenone.
[2025-01-21] MEDS: acetaminophen 325 mg Tablet 650 MG PO (23:03)
[2025-01-22] VITALS (28 sets, daily range): BP systolic 94–151; BP diastolic 56–87; PULSE 45–93; RESP 15–28; TEMP 36.6; O2SAT 92–98; BMI 30.2
[2025-01-22 07:13] LABS: Glucose Point of Care 119 mg/dL (70-110)
--- NOTE | 2025-01-22 10:00 | CTR_ITS ---
PROCEDURE INFORMATION: Exam: CT Head Without Contrast Exam date and time: 01/22/2025 11:07 AM Age: 84 years old Clinical indication: Weakness, extremity; Left; Additional info: 24 hours after tnk TECHNIQUE: Imaging protocol: Computed tomography of the head without contrast. Radiation optimization: All CT scans at this facility use at least one of these dose optimization techniques: automated exposure control; mA and/or kV adjustment per patient size (includes targeted exams where dose is matched to clinical indication); or iterative reconstruction. COMPARISON: CT head thrombolytic [id number] 01/21/2025 9:50 AM RADIATION DOSE METRICS: Total DLP (mGy-cm): 1117.13 FINDINGS: Brain: Mild parenchymal volume loss. Periventricular and subcortical hypodensity, nonspecific, but likely to be chronic small vessel ischemic change in a patient of this age group. Cerebral ventricles: No ventriculomegaly. Paranasal sinuses: Visualized sinuses are unremarkable. No fluid levels. Mastoid air cells: Visualized mastoid air cells are well aerated. Bones: Unremarkable. No acute fracture. Soft tissues: Unremarkable. Vasculature: Intracranial atherosclerotic calcification most significant of the left vertebral artery bilateral internal carotid arteries. Other findings: Cerumen impaction [id number]-left. CT/CT head wo con* [id number] IMPRESSION: No acute intracranial abnormality.
[2025-01-22 11:12] LABS: Glucose Point of Care 179 mg/dL (70-110)
--- NOTE | 2025-01-22 11:56 | PM.DCS ---
Discharge Providers Date of Admission: 01/21/25 11:10 Date of Discharge: January 22, 2025 Attending Provider at Admission: Vivek Gurrola Attending Provider at Discharge: Samir Velasco MD Primary Care Provider: Lance العراقي MD Diagnoses at Discharge Discharge Diagnosis (1) Acute stroke due to ischemia: Status: Acute (2) Atrial fibrillation: Status: Acute Reason for Visit Reason for Visit: stroke alert Brief History: History as per HPI: 84-year-old gentleman with history of 2 TIAs, obesity, diabetes, HLD, CAD, A-fib, not anticoagulation due to intolerance of warfarin and DOAC's which he had already tried in the past, experienced left upper and lower extremity weakness and lack of coordination but also some pain in the left side around 8 AM this morning on presentation to the ER stroke code was called, he was assessed with CT head which did not show bleeding, and a score of 5, and consultation with neurology she underwent treatment with TNK with improvement in symptoms of left upper and lower extremity weakness. Further workup was recommended with carotid duplex, and follow-up for outpatient testing with MRA. Mildly hypertensive in ER, 144/84, but reports at home blood pressure usually running normal to on the low side, 100-teens over 50s whenever he monitors it. He also has diabetes, but states that has been well-controlled with A1c being 5.3 last time. Hospital Course Hospital Course Patient was admitted to the hospital further evaluation and management of acute stroke. He was monitored in ICU post TNKase. Repeat CT scan was negative for acute bleed. He worked well with PT/OT and speech evaluation. Diet was advanced as per speech evaluation. Has been discharged in hemodynamically stable condition advised to follow-up with his PCP within next 1 week and with neurologist within next 2 weeks. Physical Exam Narrative: Accompanied by his . Const: COMMON NORMALS: patient oriented x3 and alert GENERAL APPEARANCE: cooperative ORIENTATION/CONSCIOUSNESS: Yes awake HENMT: COMMON NORMALS: oropharynx normal Neck/C-Spine: COMMON NORMALS: no JVD Resp: COMMON NORMALS: normal respiratory effort and clear to auscultation bilaterally AUSCULTATION: clear to auscultation bilaterally Cardio: COMMON NORMALS: no JVD, regular rhythm, S1 normal heart sound present, S2 normal heart sound present and No murmurs present (Cardio) RHYTHM: regular rhythm HEART SOUNDS: S1 normal heart sound present and S2 normal heart sound present GI: COMMON NORMALS: Normal to inspection, nondistended, normoactive bowel sounds present, Soft to palpation and non-tender PALPATION: Yes Soft to palpation Extremity: COMMON NORMALS: no joint enlargement and no pedal edema Neuro: COMMON NORMALS: patient oriented x3 and moves all extremities SENSORIUM/ORIENTATION: Yes alert OTHER: She is awake and alert, following directions. No difficulty tracking resultantly. No visual field defect. No visual extinction. Mildly slowed FNF on the left side, but performing properly. Mild left upper extremity drift. Moderate left lower extremity drift. No right upper or lower extremity drift. Sensory exam slightly diminished on the left compared to the right. No extinction. Skin: COMMON NORMALS: no rashes or lesions noted GENERAL SKIN EXAM: no rashes or lesions noted Discharge Data Studies Completed and Pending Completed Studies During Hospitalization Category Date Time Status CT head thrombolytic [id number] Stat Cat Scan 01/21/25 10:[address] head wo con* [id number] Routine Cat Scan 01/22/25 10:00 Completed US carotid duplex bilateral [CV carotid duplex BI* Ultrasound 01/21/25 10:58 Completed [id number]] Stat Pending at discharge Category Date Time Status B12 [Vitamin B12] Routine Lab 01/22/25 09:46 Ordered CBC Auto Diff [Complete Blood Count w/Auto] AM LABS Lab 01/22/25 04:00 Ordered Comprehensive Metabolic Panel Routine Lab 01/22/25 09:46 Ordered Folate Level Routine Lab 01/22/25 09:50 Ordered Hemoglobin A1C AM LABS Lab 01/22/25 04:00 Ordered Lipid Panel AM LABS Lab 01/22/25 04:00 Ordered Thyroid Stimulating Hormone Stat Lab 01/22/25 09:46 Ordered CV. echo lmt wo/w bubble [id number] Routine Ultrasound 01/22/25 17:32 Taken US echo complete [CV. echo complete* [id number]] Stat Ultrasound 01/21/25 10:58 Taken Radiology Impressions Head CT 01/22/25 10:00 IMPRESSION: No acute intracranial abnormality. Laboratory Results WBC 5.63 10^3/uL (3.29-11.43) 01/21/25 10:07 RBC 4.92 10^6/uL (3.85-5.65) 01/21/25 10:07 Hgb 15.80 g/dL (11.27-16.99) 01/21/25 10:07 Hct 47.5 % (37-53) 01/21/25 10:07 MCV 96.5 fl (82-101) 01/21/25 10:07 MCH 32.1 pg (27-33) 01/21/25 10:07 MCHC 33.3 g/dL (30-55) 01/21/25 10:07 RDW 13.0 % (12.1-15.1) 01/21/25 10:07 Plt Count 251 10^3/cmm (157-399) 01/21/25 10:07 MPV 8.4 fL (7.4-10.4) 01/21/25 10:07 Neut % (Auto) 56.1 % 01/21/25 10:07 Lymph % (Auto) 29.3 % 01/21/25 10:07 [place] % (Auto) 12.1 % 01/21/25 10:07 Eos % (Auto) 1.8 % 01/21/25 10:07 Baso % (Auto) 0.5 % 01/21/25 10:07 Neut # (Auto) 3.16 10^3/uL (1.8-7.7) 01/21/25 10:07 Lymph # (Auto) 1.7 10^3/uL (0.8-4.8) 01/21/25 10:07 [place] # (Auto) 0.7 10^3/uL (0.2-0.9) 01/21/25 10:07 Eos # (Auto) 0.1 10^3/uL (0.0-0.8) 01/21/25 10:07 Baso # (Auto) 0.0 10^3/uL (0.0-0.1) 01/21/25 10:07 Nucleated RBC % (auto) 0 % 01/21/25 10:07 Nucleated RBCs # 0.0 /100WBC 01/21/25 10:07 PT 12.60 SECONDS (12.1-14.9) 01/21/25 10:07 INR 0.88 (0.8-1.2) 01/21/25 10:07 APTT 28.7 SECONDS (23.9-36.7) 01/21/25 10:07 Sodium 137 mmol/L (136-145) 01/21/25 10:07 Potassium 4.1 mmol/L (3.5-5.1) 01/21/25 10:07 Chloride 103 mmol/L (98-107) 01/21/25 10:07 Carbon Dioxide 23 mmol/L (22-29) 01/21/25 10:07 Anion Gap 15.1 (5-19) 01/21/25 10:07 BUN 18 mg/dL (8-23) 01/21/25 10:07 Creatinine 1.0 mg/dL (0.7-1.2) 01/21/25 10:07 GFR Calculation Not Reportable 01/21/25 10:07 Glucose 124 mg/dL (65-115) H 01/21/25 10:07 POC Glucose 179 mg/dL (70-110) H 01/22/25 10:59 Calculated Osmolality 287 mOsm/kg (285-295) 01/21/25 10:07 Calcium 9.4 mg/dL (8.5-10.5) 01/21/25 10:07 Total Bilirubin 0.7 mg/dL (0.15-1.2) 01/21/25 10:07 AST 17 U/L (0-40) 01/21/25 10:07 ALT 16 U/L (0-41) 01/21/25 10:07 Alkaline Phosphatase 53 U/L (40-130) 01/21/25 10:07 Total Protein 7.0 g/dL (6.6-8.7) 01/21/25 10:07 Albumin 4.4 g/dL (3.5-5.2) 01/21/25 10:07 Globulin 2.6 g/dL (1.3-4.6) 01/21/25 10:07 Urine Color Yellow (Yellow) 01/21/25 17:06 Urine Appearance Clear (CLEAR) 01/21/25 17:06 Urine pH 6.5 (5-7) 01/21/25 17:06 Ur Specific [place] 1.012 (1.005-1.030) 01/21/25 17:06 Urine Protein Negative (Negative) 01/21/25 17:06 Urine Glucose (UA) Negative (Normal) 01/21/25 17:06 Urine Ketones 1+ (Negative) H 01/21/25 17:06 Urine Blood Negative (Negative) 01/21/25 17:06 Urine Nitrate Negative (Negative) 01/21/25 17:06 Urine Bilirubin Negative (Negative) 01/21/25 17:06 Urine Urobilinogen 0.2 mg/dL (Negative) 01/21/25 17:06 Ur Leukocyte Esterase Negative (Negative) 01/21/25 17:06 Amorphous Sediment Not Reportable 01/21/25 17:06 Urine Opiates Screen Negative ng/mL (Negative) 01/21/25 17:06 Ur Barbiturates Screen Negative ng/mL (Negative) 01/21/25 17:06 Ur Phencyclidine Scrn Negative ng/mL (Negative) 01/21/25 17:06 Ur Amphetamines Screen Negative ng/mL (Negative) 01/21/25 17:06 U Benzodiazepines Scrn Negative ng/mL (Negative) 01/21/25 17:06 Urine Cocaine Screen Negative ng/mL (Negative) 01/21/25 17:06 U Marijuana (THC) Screen Negative ng/mL (Negative) 01/21/25 17:06 Vitals Last Vital Signs Temp 97.8 F 01/22/25 04:00 Pulse 93 01/22/25 10:00 Resp 23 H 01/22/25 09:30 BP 151/87 01/22/25 09:30 Pulse Ox 95 01/22/25 10:00 O2 Del Method Room Air 01/22/25 06:30 Discharge Plan Discharge Patient Disposition: Home Condition: Stable Prescriptions: New atorvastatin 40 mg Tablet 20 mg PO BEDTIME 30 Days Qty: 30 0RF Continued clopidogrel 75 mg tablet 75 mg PO DAILY amlodipine-benazepril [Lotrel] 5-10 mg capsule 1 cap PO DAILY Januvia 100 mg tablet 100 mg PO DAILY propafenone 225 mg tablet 225 mg PO Q8H Qty: 270 3RF Discharge Orders: Discharge Order (Routine); Ordered 01/22/25 Ordered By: Samir Velasco Referrals: April Whalen MD [Physician] - 2 weeks Lance العراقي MD [Primary Care Provider] - 2 weeks Discharge Diet: Cardiac and Diabetic Discharge Activity: Resume usual activity and Increase activity as tolerated Patient Instructions: Opioid Safety Activity Restrictions/Additional Instructions: Check your blood sugar and blood pressure daily at home. Maintain a blood sugar and blood pressure diary. Follow-up with a primary care provider within next 2 weeks for further adjustment of medications as needed. Follow-up with neurologist in 2 weeks. Discharge Attestations Time Spent in Discharge Care*: greater than 30 min Specific Discharge Activities: educating patient, educating and/or supporting family/caregiver, discussing with pcp/other providers, discussing with counseling case manager/social workers/dc planners, documenting/other paperwork and evaluating patient/reviewing data Status at Discharge: Cognitive status at discharge: cognitively intact, Behavioral status at discharge: cooperative, Functional status at discharge: independent ambulation, Overall status at discharge: patient is progressing back to baseline Quality Metrics Clinical Quality Measures [ No reported AMI, CVA or VTE this stay] Coding Level of Care Code 66631 Total time (in minutes) for Discharge: 60 Diagnoses Acute stroke due to ischemia I63.9 Atrial fibrillation I48.91
--- NOTE | 2025-01-22 17:32 | USCV_ITS ---
Gustavo Jhaveri Age: 84 Gender: M : 1940 Exam Date: 01/22/2025 07:15 Ordering Phys: Vivek Gurrola MD Technologist: [place] [facility] [place]: cva BP: / HR: Rhythm: Sinus Technical Quality: Adequate MEASUREMENTS (Male / Female) Normal Values FINDINGS Left Ventricle Right Ventricle Right Atrium Left Atrium Mitral Valve Aortic Valve Tricuspid Valve Pulmonic Valve Pericardium Aorta IVC CONCLUSIONS Bubble study performed. Limited quality study. No evidence of intracardiac shunting seen. Tommy Fermin MD (Electronically Signed) Final Date: 23 January 2025 10:18 S
== END 2025-01-22 12:41 | disposition home or self-care (01) | DRG 62 ==
LOC: ER 10:05 → ER IP 11:10 → ICU 14:29 → ER IP 15:36 → ICU 17:32
PROVIDERS: Admitting Provider Internal Medicine; Emergency Provider Family Medicine; PCP Family Medicine; Visit Provider Student in an Organized Health Care Education/Training Program
DX: I63.89 Other cerebral infarction (principal); G81.94 Hemiplegia, unspecified affecting left nondominant side; R27.0 Ataxia, unspecified; R20.0 Anesthesia of skin; I25.10 Atherosclerotic heart disease of native coronary artery without angina pectoris; I48.91 Unspecified atrial fibrillation; R29.705 NIHSS score 5; E11.9 Type 2 diabetes mellitus without complications; I10 Essential (primary) hypertension; Z79.02 Long term (current) use of antithrombotics/antiplatelets; Z79.84 Long term (current) use of oral hypoglycemic drugs
CPT/HCPCS: 36415; 36416; 70450; 80053; 80306; 81003; 82962; 85025; 85610; 85730; 92523; 92610; 93005; 93306; 93880; 96372; 96374; 97161; 97165; 99285; C8924; C8929; J1815; J3101; J3490

== ENCOUNTER 2025-01-31 08:08 | Inpatient (IN) | payer MEDICARE, OTHER, SELFPAY ==
[2025-01-31] VITALS (19 sets, daily range): BP systolic 102–155; BP diastolic 65–81; PULSE 56–93; RESP 11–24; TEMP 36.5–36.8; O2SAT 89–97; BMI 30.2
--- NOTE | 2025-01-31 08:15 | CT_ITS ---
WS: [id number] CT HEAD NONCONTRAST HISTORY: Symptoms of acute stroke TECHNIQUE: Contiguous axial imaging performed through the brain. Bone and soft tissue windows. Sagittal and coronal reformats reviewed. All CT scans at [facility] use at least one of these dose optimization techniques: automated exposure control; mA and/or kV adjustment per patient size (includes targeted exams where dose is matched to clinical indication); or iterative reconstruction. DLP: 1060.68 mGy COMPARISON: 01/22/2025 No acute intracranial hemorrhage, midline shift or mass effect. Mild atrophy. Mild small vessel disease. No subacute infarct identified. Ventricles: Normal size with no hydrocephalus. No inferior displacement of the cerebellar tonsils. Paranasal sinuses: As visualized are clear. Mastoid air cells: Well pneumatized. Cerumen in the LEFT external auditory canal. Calvarium and scalp: Skull is intact with no soft tissue edema or swelling. CT/CT head thrombolytic 75983 IMPRESSION: 1. No acute intracranial hemorrhage or edema. 2. Mild atrophy and small vessel disease. No subacute infarct.
--- NOTE | 2025-01-31 08:41 | W.ED.DIZZY ---
HPI - Dizziness General: Chief Complaint: ER Hold Stated Complaint: stroke like symptoms Time Seen by Provider: 01/31/25 08:14 History of Present Illness: HPI Narrative: 84-year-old male presents emergency room complaining of generalized weakness pain in the back of his head. He was seen 10 days ago for an acute CVA at which time he was treated with thrombolysis. He has had return of the majority of his symptoms he still has some dizziness and weakness. This morning he woke up with bilateral lower extremity weakness. Associated symptoms: Denies chest pain or chills Related Data Home Medications ?Medication ?Instructions ?Recorded ?Confirmed amlodipine 5 mg-benazepril 10 mg 1 cap PO DAILY 04/27/20 01/31/25 capsule (Lotrel) clopidogrel 75 mg tablet 75 mg PO DAILY 04/27/20 01/31/25 sitagliptin phosphate 100 mg 100 mg PO DAILY 04/27/20 01/31/25 tablet (Januvia) evolocumab 140 mg/mL subcutaneous 1 mg SUBCUT Q14D 01/31/25 01/31/25 pen injector (Repatha SureClick) magnesium oxide 400 mg PO DAILY 01/31/25 01/31/25 bamhskpc-fr-tfcyn 300 mcg-K 60 1 tab PO DAILY 01/31/25 01/31/25 mcg-lycop 600 mcg-lutein 300 mcg tablet (Men 50 Plus Multivitamin) Previous Rx's ?Medication ?Instructions ?Recorded propafenone 225 mg tablet 225 mg PO Q8H #270 tabs 01/31/25 meclizine 25 mg tablet 25 mg PO Q8H PRN dizziness 10 days 02/02/25 #30 tabs promethazine 25 mg tablet 25 mg PO Q8H PRN dizziness 10 days 02/02/25 #30 tabs Allergies Allergy/AdvReac Type Severity Reaction Status Date / Time hydromorphone (From Dilaudid) Allergy Unknown Unknown Verified 11/29/24 15:34 influenza virus vaccine, Allergy Unknown Unknown Verified 11/29/24 15:34 specific Iodinated Contrast Media Allergy Unknown Unknown Verified 11/29/24 15:34 levofloxacin (From Levaquin) Allergy Unknown Unknown Verified 11/29/24 15:34 metformin AdvReac Unknown ADR-Dizzine Verified 11/29/24 15:34 ss Review of Systems Const: Denies: fever(s) or chills Card: Denies: chest pain Resp: Denies: dyspnea GI: Denies: abdominal pain : Denies: dysuria, urinary frequency or urinary urgency Musc: Denies: neck pain or back pain Skin/Breast: Denies: rash PFSH ED PFSH: Medical History History of rheumatic fever 1944 Cerebrovascular accident 01/21/2025 R thalamic or subcortical internal capsule lacunar involvement with left weakness, mild coordination complaints, received TNK 01/21/2025 Bladder cancer TCCA Obesity BMI 30 Diabetes non-insulin requiring Hyperlipidemia TIA (transient ischemic attack) 1st in 1994, another in 2014 ASHD (arteriosclerotic heart disease) HTN (hypertension) Atrial fibrillation intolerant of warfarin/DOACs per records so no anticoagulation, takes antiplatelet therapy Surgical History History of cystoscopy 01/2024 - no recurrence TCCA noted; 10/2024 S/P cataract extraction bilateral S/P tonsillectomy H/O bone graft LEFT WRIST History of transurethral destruction of bladder lesion History of loop recorder placed 10/2016 Family History Mother , AT AGE 89 Diabetes Father , AT AGE 60 CAD (coronary artery disease) Social History Smoking and tobacco/nicotine status: heavy tobacco/nicotine user (quit 1986) Alcohol intake: never Household members: spouse Marital status: service: Yes branch: [employer] Current occupational status: retired Physical Exam Const: GENERAL APPEARANCE: cooperative ORIENTATION/CONSCIOUSNESS: Yes awake, Yes oriented to person, Yes oriented to place and Yes oriented to time HENMT: COMMON NORMALS: normocephalic, atraumatic and hearing grossly normal bilaterally HEAD & SCALP: normocephalic and atraumatic Resp: COMMON NORMALS: normal respiratory effort, No retractions, No use of accessory muscles and clear to auscultation bilaterally AUSCULTATION: clear to auscultation bilaterally Cardio: COMMON NORMALS: regular rate, regular rhythm and No murmurs present (Cardio) RATE: regular rate RHYTHM: regular rhythm GI: COMMON NORMALS: Soft to palpation and No hepatosplenomegaly present AUSCULTATION: Yes normoactive bowel sounds PALPATION: Yes Soft to palpation, No Tenderness to palpation present (GI), No Guarding due to palpation present (GI) and Yes No hepatosplenomegaly present Extremity: COMMON NORMALS: normal to inspection, capillary refill normal, no clubbing, cyanosis or edema, no calf tenderness and no pedal edema Neuro: SENSORIUM/ORIENTATION: Yes oriented to person, Yes oriented to place and Yes oriented to time OTHER: No lateralizing symptoms patient is generally weak but has no signs of acute CVA. Skin: COMMON NORMALS: no rashes or lesions noted GENERAL SKIN EXAM: no rashes or lesions noted Course Vital Signs: Vital signs: Vital Signs Temperature 98.0 F 02/02/25 13:50 Pulse Rate 70 02/02/25 13:50 Respiratory Rate 20 H 02/02/25 13:50 Blood Pressure 120/69 02/02/25 13:50 Pulse Oximetry 95 02/02/25 13:50 Oxygen Delivery Me thod Room Air 02/02/25 11:42 [facility] - Dizziness Medical Decision Making Patient is 1 week post TNKase for acute stroke now presenting with dizziness began suddenly and is reproducible. He does not have any nystagmus. Patient treated for his vertiginous symptoms in the emergency room continued to be extremely dizzy unable to stand at the bedside. He also has a history of atrial fibrillation but his rate is well-controlled. Will place on observation for his persistent vertiginous symptoms at does not appear as if he has had a new posterior stroke he is not a candidate for thrombolysis or embolectomy based on his NIH at the time of appearance. I do suspect that the vertiginous symptoms may be due to his previous stroke. Lab Data 01/31/25 09:06 01/31/25 09:[address] 01/31/25 08:15 IMPRESSION: 1. No acute intracranial hemorrhage or edema. 2. Mild atrophy and small vessel disease. No subacute infarct. Head/Neck CTA 01/31/25 11:23 IMPRESSION: 1. Less than 50% stenosis cervical carotid arteries. 2. 50% stenosis due to calcified plaque to the carotid cavernous sinuses. 3. No occlusion or high-grade stenosis within the skull valley of [place]. No aneurysm. 4. Small caliber but patent RIGHT vertebral artery. 5. Unremarkable skull valley of [place]. Laboratory Results WBC 6.16 10^3/uL (3.29-11.43) 01/31/25 09:06 RBC 4.84 10^6/uL (3.85-5.65) 01/31/25 09:06 Hgb 16.10 g/dL (11.27-16.99) 01/31/25 09:06 Hct 46.7 % (37-53) 01/31/25 09:06 MCV 96.5 fl (82-101) 01/31/25 09:06 MCH 33.3 pg (27-33) H 01/31/25 09:06 MCHC 34.5 g/dL (30-55) 01/31/25 09:06 RDW 12.9 % (12.1-15.1) 01/31/25 09:06 Plt Count 243 10^3/cmm (157-399) 01/31/25 09:06 MPV 8.4 fL (7.4-10.4) 01/31/25 09:06 Neut % (Auto) 62.1 % 01/31/25 09:06 Lymph % (Auto) 24.5 % 01/31/25 09:06 Angelina % (Auto) 10.4 % 01/31/25 09:06 Eos % (Auto) 1.9 % 01/31/25 09:06 Baso % (Auto) 0.8 % 01/31/25 09:06 Neut # (Auto) 3.82 10^3/uL (1.8-7.7) 01/31/25 09:06 Lymph # (Auto) 1.5 10^3/uL (0.8-4.8) 01/31/25 09:06 Angelina # (Auto) 0.6 10^3/uL (0.2-0.9) 01/31/25 09:06 Eos # (Auto) 0.1 10^3/uL (0.0-0.8) 01/31/25 09:06 Baso # (Auto) 0.1 10^3/uL (0.0-0.1) 01/31/25 09:06 Nucleated RBC % (auto) 0 % 01/31/25 09:06 Nucleated RBCs # 0.0 /100WBC 01/31/25 09:06 PT 12.60 SECONDS (12.1-14.9) 01/31/25 09:06 INR 0.89 (0.8-1.2) 01/31/25 09:06 APTT 27.4 SECONDS (23.9-36.7) 01/31/25 09:06 Sodium 136 mmol/L (136-145) 01/31/25 09:06 Potassium 4.3 mmol/L (3.5-5.1) 01/31/25 09:06 Chloride 102 mmol/L (98-107) 01/31/25 09:06 Carbon Dioxide 24 mmol/L (22-29) 01/31/25 09:06 Anion Gap 14.3 (5-19) 01/31/25 09:06 BUN 17 mg/dL (8-23) 01/31/25 09:06 Creatinine 1.1 mg/dL (0.7-1.2) 01/31/25 09:06 GFR Calculation Not Reportable 01/31/25 09:06 Glucose 124 mg/dL (65-115) H 01/31/25 09:06 POC Glucose 163 mg/dL (70-110) H 02/01/25 16:36 Estimat Average Glucose 117 02/01/25 05:16 Hemoglobin A1c 5.7 % (4.0-6.0) 02/01/25 05:16 Calculated Osmolality 285 mOsm/kg (285-295) 01/31/25 09:06 Calcium 9.7 mg/dL (8.5-10.5) 01/31/25 09:06 Total Bilirubin 0.8 mg/dL (0.15-1.2) 01/31/25 09:06 AST 15 U/L (0-40) 01/31/25 09:06 ALT 13 U/L (0-41) 01/31/25 09:06 Alkaline Phosphatase 53 U/L (40-130) 01/31/25 09:06 Total Protein 7.4 g/dL (6.6-8.7) 01/31/25 09:06 Albumin 4.3 g/dL (3.5-5.2) 01/31/25 09:06 Globulin 3.1 g/dL (1.3-4.6) 01/31/25 09:06 Triglycerides 90 mg/dL (0-150) 02/01/25 05:16 Cholesterol 166 mg/dL (0-200) 02/01/25 05:16 LDL Cholesterol, Calc 99 mg/dL (50-129) 02/01/25 05:16 HDL Cholesterol 49 mg/dL (60-100) L 02/01/25 05:16 LDL/HDL Ratio 2.02 RATIO (0.00-3.22) 02/01/25 05:16 Cholesterol/HDL Ratio 3.39 mg/dL (1.0-5.00) 02/01/25 05:16 Urine Color Yellow (Yellow) 01/31/25 08:57 Urine Appearance Clear (CLEAR) 01/31/25 08:57 Urine pH 7.5 (5-7) 01/31/25 08:57 Ur Specific [place] 1.009 (1.005-1.030) 01/31/25 08:57 Urine Protein Negative (Negative) 01/31/25 08:57 Urine Glucose (UA) Negative (Normal) 01/31/25 08:57 Urine Ketones Negative (Negative) 01/31/25 08:57 Urine Blood Negative (Negative) 01/31/25 08:57 Urine Nitrate Negative (Negative) 01/31/25 08:57 Urine Bilirubin Negative (Negative) 01/31/25 08:57 Urine Urobilinogen 0.2 mg/dL (Negative) 01/31/25 08:57 Ur Leukocyte Esterase Negative (Negative) 01/31/25 08:57 Amorphous Sediment Not Reportable 01/31/25 08:57 Urine Opiates Screen Negative ng/mL (Negative) 01/31/25 08:57 Ur Barbiturates Screen Negative ng/mL (Negative) 01/31/25 08:57 Ur Phencyclidine Scrn Negative ng/mL (Negative) 01/31/25 08:57 Ur Amphetamines Screen Negative ng/mL (Negative) 01/31/25 08:57 U Benzodiazepines Scrn Negative ng/mL (Negative) 01/31/25 08:57 Urine Cocaine Screen Negative ng/mL (Negative) 01/31/25 08:57 U Marijuana (THC) Screen Negative ng/mL (Negative) 01/31/25 08:57 All radiology interpretation(s) finalized by discharge Discharge Plan Discharge Patient Disposition: Placed in Observation Admit Provider: Vivek Gurrola Clinical Impression: Vertigo, Atrial fibrillation, Diabetes Discharge Diet: Usual diet Discharge Activity: Resume usual activity Coding Level of Care Code ED Metal Box Maker for Lisa Graff NIH stroke score NIHSS Level Of Consciousness - 1a: 0 Level Of Consciousness Questions - 1b: Both Correct Level Of Consciousness Commands - 1c: Both Correct Best Gaze - 2: Normal Visual [place] - 3: No Visual Loss Facial Palsy - 4: Normal Motor Arm Right - 5: No Drift Motor Arm Left - 5: No Drift Motor Leg Right - 6: No Drift Motor Leg Left - 6: No Drift Limb Ataxia - 7: Absent Sensory - 8: Normal Best Language - 9: No Aphasia Dysarthia - 10: Normal Extinction And Inattention - 11: 0 Score Total Score: 0
--- NOTE | 2025-01-31 08:43 | ECG_ITS ---
[facility]: 2025-01[facility]31 Pat Name: Gustavo Jhaveri Department: Room: Gender: Male Dedicated Owner Operator: : 1940 Requested By: Trey Bonilla Order Number: [id number] Jose Miguel MD: Tommy Fermin M.D. Measurements Intervals [place] Rate: 60 P: 60 [place]: 236 QRS: 51 QRSD: 94 T: 48 QT: 418 QTc: 418 Interpretive Statements SINUS RHYTHM WITH FIRST DEGREE AV BLOCK LOW QRS VOLTAGE IN PRECORDIAL LEADS [QRS DEFLECTION < 1.0 mV IN CHEST LEADS] Compared to ECG 01/21/2025 10:03:37 Low QRS voltage now present T-wave abnormality no longer present Electronically Signed On 02-05-2025 18:17:53 [employer] by Tommy Fermin M.D. [email or web address]
[2025-01-31 09:07] LABS: Add Urine Microscopic? NO
[2025-01-31 09:10] LABS: Bilirubin Urine Negative (Negative); Blood Urine Negative (Negative); Glucose Urine UA Negative (Normal); Ketones Urine Negative (Negative); Leukocyte Esterase Urine Negative (Negative); Nitrate Urine Negative (Negative); Protein Urine Negative (Negative); Specific Gravity, Urine 1.009 (1.005-1.030); Urine Appearance Clear (CLEAR); Urine Color Yellow (Yellow); Urobilinogen Urine 0.2 mg/dL (Negative); pH Urine 7.5 (5-7)
[2025-01-31 09:12] LABS: Charge for UA Resulting for Rev
[2025-01-31 09:19] LABS: Amphetamines Screen Urine Negative (Negative); Barbiturates Screen Urine Negative (Negative); Benzodiazepines Screen Urine Negative (Negative); Cocaine Screen Urine Negative (Negative); Opiate Screen Urine Negative (Negative); PCP Screen Urine Negative (Negative); THC Screen Urine Negative (Negative)
[2025-01-31 09:19] LABS: Basophils # 0.1 10^3/uL (0.0-0.1); Basophils % 0.8 %; Eosinophils # 0.1 10^3/uL (0.0-0.8); Eosinophils % 1.9 %; Hematocrit 46.7 % (37-53); Lymphocytes # 1.5 10^3/uL (0.8-4.8); Lymphocytes % 24.5 %; Mean Corpuscular HGB Conc 34.5 g/dL (30-55); Mean Corpuscular Hemoglobin 33.3 pg (27-33); Mean Corpuscular Volume 96.5 fl (82-101); Mean Platelet Volume 8.4 fL (7.4-10.4); Monocytes # 0.6 10^3/uL (0.2-0.9); Monocytes % 10.4 %; Neutrophils # 3.82 10^3/uL (1.8-7.7); Neutrophils % 62.1 %; Nucleated Red Blood Cells % 0 %; Platelet Count 243 10^3/cmm (157-399); Red Blood Count 4.84 10^6/uL (3.85-5.65); Red Cell Distribution Width 12.9 % (12.1-15.1); White Blood Count 6.16 10^3/uL (3.29-11.43)
[2025-01-31 09:32] LABS: INR 0.89 (0.8-1.2)
[2025-01-31 09:33] LABS: Partial Thromboplastin Time 27.4 SECONDS (23.9-36.7)
[2025-01-31 09:37] LABS: Alanine Aminotransferase 13 U/L (0-41); Albumin Level 4.3 g/dL (3.5-5.2); Alkaline Phosphatase 53 U/L (40-130); Anion Gap 14.3 (5-19); Aspartate Amino Transferase 15 U/L (0-40); Blood Urea Nitrogen 17 mg/dL (8-23); Calcium 9.7 mg/dL (8.5-10.5); Carbon Dioxide 24 mmol/L (22-29); Chloride 102 mmol/L (98-107); Creatinine Clr Calc Pharmacy 66.1816; Globulin 3.1 g/dL (1.3-4.6); Glucose 124 mg/dL (65-115); Osmolality Calculated 285 mOsm/kg (285-295); Potassium 4.3 mmol/L (3.5-5.1); Sodium 136 mmol/L (136-145); Total Bilirubin 0.8 mg/dL (0.15-1.2); Total Protein 7.4 g/dL (6.6-8.7)
--- NOTE | 2025-01-31 11:23 | CT_ITS ---
WS: [id number] CT ANGIOGRAM CEREBRAL AND CAROTID ARTERIES HISTORY: Recent CVA, dizziness TECHNIQUE: CT angiogram is performed of the carotid and cerebral arteries. During arterial injection imaging is obtained from the skull vertex to the aortic arch in 1.25 mm imaging. Coronal and sagittal reformats are submitted. Additional multi planar reformats of the carotid and cerebral arteries are submitted, MIP imaging also reviewed. NASCET criteria utilized. All CT scans at [facility] use at least one of these dose optimization techniques: automated exposure control; mA and/or kV adjustment per patient size (includes targeted exams where dose is matched to clinical indication); or iterative reconstruction. CONTRAST: Omnipaque 350; 100 mL IV. DLP: 470.43 mGy.cm COMPARISON: Carotid ultrasound 01/21/2025 Carotid Angiogram: Right carotid: Common carotid artery: Arises normally from the innominate artery. No significant plaque or stenosis. Internal carotid artery: Small amount of plaque at the bifurcation. No stenosis. External carotid artery: Patent. Left carotid: Common carotid artery: Arises normally from the aorta. No significant plaque or stenosis. Origin of the LEFT subclavian from the aortic arch is not included. Internal carotid artery: Plaque at the bifurcation. No high-grade stenosis. Intimal thickening and plaque. External carotid artery: Patent. Right vertebral artery: Small caliber RIGHT vertebral artery but it is patent. Left vertebral artery: Dominant LEFT vertebral artery is patent. Subclavian arteries: No stenosis or significant abnormality. Upper thorax: Normal. Thyroid gland: Normal. Osseous structures: Degenerative spondylitic changes in the mid cervical spine. CEREBRAL ANGIOGRAM: Intracranial vertebral arteries: Small caliber RIGHT vertebral artery but it is patent. Dominant LEFT vertebral artery. Near circumferential plaque around the distal LEFT vertebral artery at the foramen. Basilar artery: No significant stenosis or occlusion. No aneurysm. Intracranial Internal carotid arteries: Moderate plaques in the cavernous sinuses. No stenosis. Estimated 50% stenosis. No aneurysm. Middle cerebral arteries: Normal. Anterior cerebral arteries and ACOM: Normal. Posterior cerebral arteries and PCOM's: Normal. Dural venous sinuses are normally enhancing. Mastoid air cells: Normal. Paranasal sinuses: Normal. Calvarium: Normal. CT/CT angio headneck* [id number] IMPRESSION: 1. Less than 50% stenosis cervical carotid arteries. 2. 50% stenosis due to calcified plaque to the carotid cavernous sinuses. 3. No occlusion or high-grade stenosis within the [place] of [place]. No aneurys m. 4. Small caliber but patent RIGHT vertebral artery. 5. Unremarkable [place] of Bess.
--- NOTE | 2025-01-31 11:46 | P.HP_ITS ---
Providers/Chief Complaint 2 Admitting Physician: Molly Roy MD Primary Care Provider: Lance العراقي MD Chief Complaint: stroke like symptoms History of Present Illness Gustavo Jhaveri is a 84-year-old gentleman gentleman with a history of atrial fibrillation and previous stroke presents to the ER with dizziness. He was previously hospitalized on January 21 for left-sided weakness and coordination difficulties, managed as a stroke alert, and received antithrombotic therapy. He improved and was discharged the following day. Since discharge, he has been doing well until 2 AM today when he experienced severe dizziness, nausea, and difficulty focusing his eyes. He did not vomit but was unable to get out of bed due to dizziness. His was informed at 4:22 AM, and he was transported to the hospital by ambulance. In the ER, he received Ativan and Meclizine for dizziness and nausea. A CT of the head showed no acute intracranial hemorrhage or edema, but mild atrophy and small vessel disease were noted. Neurology was consulted, and a CTA of the head and neck was recommended by Dr Hoskins. He has a contrast allergy, so he was pre-treated with Solu- Medrol and Benadryl. He is currently in sinus rhythm. He did take his morning dose of propafenone and blood pressure medication, but has not had his Plavix yet today nor his sitagliptan. His blood sugars were checked in ambulance in route and were ~150. He reports no chest pain, but slight sweating overnight, maybe due to blankets, and chronic constipation. No recent fevers, cough, or sore throat. He has not had any vomiting. He has a history of atrial fibrillation, but is intolerant to warfarin, DOAC's he has tried, aspirin which caused significant drop in blood pressure. Only antiplatelet therapy is clopidogrel. He is also intolerant of statin therapy but was started on Repatha last week, taking his first dose on 01/27/2025. Review of Systems 2 General: Reports: Other (ROS as per HPI or as otherwise noted here) Eyes: Denies: change in vision (no double vision) or photophobia ENMT: Reports: post nasal drip Resp: Reports: productive cough (occasional, related to post-nasal drip) GI: Reports: constipation (chronic); Denies: change in bowel habits or hematochezia : Reports: urinary urgency (sometimes), difficulty starting urination (sometimes) and other (has been evaluated by urology and prostate is okay); Denies: hematuria Neuro: Reports: headache(s) (posterior, back/base of skull feels different than usual), lack of coordination, dizziness, Slurred speech present (and very sleepy but ONLY since got lorazepam and diphenhydramine in ED) and difficulty communicating thoughts (ONLY since got lorazepam and diphenhydramine in ED); Denies: weakness in extremities (not today) Vega/Lymph: Reports: other (no bleeding noted since discharge, no bruise noted, even where Dez got him) All/Imm: Reports: other (has had issues with multiple medications over the years) Medications/Allergies Home Medications ?Medication ?Instructions ?Recorded ?Confirmed ?Last Taken ?Type amlodipine 5 mg-benazepril 10 mg 1 cap PO DAILY 01/31/25 01/31/25 06:00 History capsule (Lotrel) clopidogrel 75 mg tablet 75 mg PO DAILY 04/27/2002/2201/31/25 06:00 History sitagliptin phosphate 100 mg 100 mg PO DAILY 04/27/20 01/31/25 01/31/25 06:00 History tablet (Januvia) evolocumab 140 mg/mL subcutaneous 1 mg SUBCUT Q14D 02/2201/31/25 01/27/25 History pen injector (Repatha SureClick) magnesium oxide 400 mg PO DAILY 01/31/2502/2201/31/25 06:00 History kagbykvo-cu-wzleu 300 mcg-K 60 1 tab PO DAILY 01/31/25 01/31/25 01/30/25 History mcg-lycop 600 mcg-lutein 300 mcg tablet (Men 50 Plus Multivitamin) propafenone 225 mg tablet 225 mg PO Q8H #270 tabs 02/2201/31/25 01/31/25 06:00 Rx Allergies Allergy/AdvReac Type Severity Reaction Status Date / Time hydromorphone (From Dilaudid) Allergy Unknown Unknown Verified 11/29/24 15:34 influenza virus vaccine, Allergy Unknown Unknown Verified 11/29/24 15:34 specific Iodinated Contrast Media Allergy Unknown Unknown Verified 11/29/24 15:34 levofloxacin (From Levaquin) Allergy Unknown Unknown Verified 11/29/24 15:34 metformin AdvReac Unknown ADR-Dizzine Verified 11/29/24 15:34 ss PFSH Acute 2 PFSH: Medical History (Updated 01/31/25 @ 14:13 by Molly Roy MD) History of rheumatic fever 1944 Cerebrovascular accident 01/21/2025 R thalamic or subcortical internal capsule lacunar involvement with left weakness, mild coordination complaints, received TNK 01/21/2025 Bladder cancer TCCA Obesity BMI 30 Diabetes non-insulin requiring Hyperlipidemia TIA (transient ischemic attack) 1st in 1994, another in 2014 ASHD (arteriosclerotic heart disease) HTN (hypertension) Atrial fibrillation intolerant of warfarin/DOACs per records so no anticoagulation, takes antiplatelet therapy Surgical History (Updated 01/31/25 @ 14:12 by Molly Roy MD) History of cystoscopy 01/2024 - no recurrence TCCA noted; 10/2024 S/P cataract extraction bilateral S/P tonsillectomy H/O bone graft LEFT WRIST History of transurethral destruction of bladder lesion History of loop recorder placed 10/2016 Family History Mother , AT AGE 89 Diabetes Father , AT AGE 60 CAD (coronary artery disease) Social History Smoking and tobacco/nicotine status: heavy tobacco/nicotine user (quit 1986) Alcohol intake: never Household members: spouse Marital status: service: Yes branch: [employer] Current occupational status: retired Vitals/I&O/Wt Last Vital Signs Temp 97.7 F 01/31/25 08:10 Pulse 56 L 01/31/25 11:09 Resp 17 01/31/25 08:10 BP 114/73 01/31/25 11:09 Pulse Ox 92 01/31/25 11:09 O2 Del Method Room Air 01/31/25 11:09 Weight last 48 hrs Weight 106.594 kg Physical Exam 2 Narrative: Patient is awake and alert though has to think hard to formulate answers to questions at times. He did receive Benadryl on top of previously administered lorazepam recently which has made a difference in his ability to communicate. Face is symmetric and extraocular movements are intact but at times his speech sounds slightly slurred. When I ask him to repeat not always slurred. Mucous membranes are moist. Uvula midline. Neck is supple. Able to move head [id number] during conversation without eliciting worsening vertigo symptoms. No double vision noted in either eye. Pupils are equally reactive. Lungs are clear to auscultation bilaterally without any rales rhonchi or wheezes noted. Cardiovascular exam reveals a regular rate and rhythm. No murmurs noted. Pedal pulses are equal bilaterally. Lungs are clear to auscultation bilaterally without any rales rhonchi or wheezes noted. No pitting edema. Loss of hair noted to both lower extremities however. Moves all extremities. Handgrip equal. Data 01/31/25 09:06 01/31/25 09:06 Other Labs: Radiology Impressions Head CT 01/31/25 08:15 IMPRESSION: 1. No acute intracranial hemorrhage or edema. 2. Mild atrophy and small vessel disease. No subacute infarct. Laboratory Results WBC 6.16 10^3/uL (3.29-11.43) 01/31/25 09:06 RBC 4.84 10^6/uL (3.85-5.65) 01/31/25 09:06 Hgb 16.10 g/dL (11.27-16.99) 01/31/25 09:06 Hct 46.7 % (37-53) 01/31/25 09:06 MCV 96.5 fl (82-101) 01/31/25 09:06 MCH 33.3 pg (27-33) H 01/31/25 09:06 MCHC 34.5 g/dL (30-55) 01/31/25 09:06 RDW 12.9 % (12.1-15.1) 01/31/25 09:06 Plt Count 243 10^3/cmm (157-399) 01/31/25 09:06 MPV 8.4 fL (7.4-10.4) 01/31/25 09:06 Neut % (Auto) 62.1 % 01/31/25 09:06 Lymph % (Auto) 24.5 % 01/31/25 09:06 [place] % (Auto) 10.4 % 01/31/25 09:06 Eos % (Auto) 1.9 % 01/31/25 09:06 Baso % (Auto) 0.8 % 01/31/25 09:06 Neut # (Auto) 3.82 10^3/uL (1.8-7.7) 01/31/25 09:06 Lymph # (Auto) 1.5 10^3/uL (0.8-4.8) 01/31/25 09:06 [place] # (Auto) 0.6 10^3/uL (0.2-0.9) 01/31/25 09:06 Eos # (Auto) 0.1 10^3/uL (0.0-0.8) 01/31/25 09:06 Baso # (Auto) 0.1 10^3/uL (0.0-0.1) 01/31/25 09:06 Nucleated RBC % (auto) 0 % 01/31/25 09:06 Nucleated RBCs # 0.0 /100WBC 01/31/25 09:06 PT 12.60 SECONDS (12.1-14.9) 01/31/25 09:06 INR 0.89 (0.8-1.2) 01/31/25 09:06 APTT 27.4 SECONDS (23.9-36.7) 01/31/25 09:06 Sodium 136 mmol/L (136-145) 01/31/25 09:06 Potassium 4.3 mmol/L (3.5-5.1) 01/31/25 09:06 Chloride 102 mmol/L (98-107) 01/31/25 09:06 Carbon Dioxide 24 mmol/L (22-29) 01/31/25 09:06 Anion Gap 14.3 (5-19) 01/31/25 09:06 BUN 17 mg/dL (8-23) 01/31/25 09:06 Creatinine 1.1 mg/dL (0.7-1.2) 01/31/25 09:06 GFR Calculation Not Reportable 01/31/25 09:06 Glucose 124 mg/dL (65-115) H 01/31/25 09:06 Calculated Osmolality 285 mOsm/kg (285-295) 01/31/25 09:06 Calcium 9.7 mg/dL (8.5-10.5) 01/31/25 09:06 Total Bilirubin 0.8 mg/dL (0.15-1.2) 01/31/25 09:06 AST 15 U/L (0-40) 01/31/25 09:06 ALT 13 U/L (0-41) 01/31/25 09:06 Alkaline Phosphatase 53 U/L (40-130) 01/31/25 09:06 Total Protein 7.4 g/dL (6.6-8.7) 01/31/25 09:06 Albumin 4.3 g/dL (3.5-5.2) 01/31/25 09:06 Globulin 3.1 g/dL (1.3-4.6) 01/31/25 09:06 Urine Color Yellow (Yellow) 01/31/25 08:57 Urine Appearance Clear (CLEAR) 01/31/25 08:57 Urine pH 7.5 (5-7) 01/31/25 08:57 Ur Specific [place] 1.009 (1.005-1.030) 01/31/25 08:57 Urine Protein Negative (Negative) 01/31/25 08:57 Urine Glucose (UA) Negative (Normal) 01/31/25 08:57 Urine Ketones Negative (Negative) 01/31/25 08:57 Urine Blood Negative (Negative) 01/31/25 08:57 Urine Nitrate Negative (Negative) 01/31/25 08:57 Urine Bilirubin Negative (Negative) 01/31/25 08:57 Urine Urobilinogen 0.2 mg/dL (Negative) 01/31/25 08:57 Ur Leukocyte Esterase Negative (Negative) 01/31/25 08:57 Amorphous Sediment Not Reportable 01/31/25 08:57 Urine Opiates Screen Negative ng/mL (Negative) 01/31/25 08:57 Ur Barbiturates Screen Negative ng/mL (Negative) 01/31/25 08:57 Ur Phencyclidine Scrn Negative ng/mL (Negative) 01/31/25 08:57 Ur Amphetamines Screen Negative ng/mL (Negative) 01/31/25 08:57 U Benzodiazepines Scrn Negative ng/mL (Negative) 01/31/25 08:57 Urine Cocaine Screen Negative ng/mL (Negative) 01/31/25 08:57 U Marijuana (THC) Screen Negative ng/mL (Negative) 01/31/25 08:57 EKG 1: I personally reviewed and interpreted this EKG as follows: My Interpretation: SR 60, no ST segment changes EKG computer-generated impression: Rate 60 ID 236 QRSd 94 QT 418 QTc 418 --[place]-- P 60 QRS 51 T 48 SINUS RHYTHM WITH FIRST DEGREE AV BLOCK LOW QRS VOLTAGE IN PRECORDIAL LEADS [QRS DEFLECTION < 1.0 mV IN CHEST LEADS] Compared to ECG 01/21/2025 10:03:37 Low QRS voltage now present T-wave abnormality no longer presen Other data: Unable to find lipid panel or A1c from last hospital stay, thinks last checked by PCP in 10/2024 Echo 01/21/2025 CONCLUSIONS LV systolic function is normal with EF of 55-60%. 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 Limited quality study. No evidence of intracardiac shunting seen. Carotid Doppler 01/21/2025 CONCLUSIONS Bilateral ICA stenosis less than 50%. Carotid atherosclerosis has progressed since the prior exam from 2016. A&P Assessment and plan (1) Vertigo: Sudden onset around 2 AM on January 31. Primary concern at this point in time is for additional cerebrovascular event particularly given acute stroke presenting on 01/21/2025 treated with TNK and current examination findings that do not support benign positional vertigo at this time. That said patient has had improvement in vertigo symptoms with medication management including meclizine, lorazepam (along with Benadryl and Solu-Medrol given for contrast pretreatment). If it were indicated, not a candidate for antithrombotic therapy consideration given that he received it such a short time ago. - Continue scheduled meclizine and as needed lorazepam for symptom management - Follow-up pending CTA of the head and neck - Greatly appreciate neurology input and assistance in overall management - Will proceed with PT, OT and speech evaluations - Had echocardiogram with bubble study and carotid ultrasound during admission January 21 - Continue Plavix - Intolerant of statin therapy, aspirin - Recently started on Repatha, with first dose 01/27/2025 - Check lipid panel and hemoglobin A1c (2) Acute stroke due to ischemia: Had acute stroke on 01/21/2025 treated with TNK. Symptoms included left-sided weakness which completely resolved after TNK as well as some coordination difficulties that were markedly better but not completely resolved. Did not have dizziness or nausea associated with that stroke. Clinically felt to be a right thalamic or possibly right subcortical internal capsule lacunar infarction at the time. Carotid ultrasound did not show clinically significant stenosis. Echocardiogram and bubble study did not demonstrate abnormalities necessitating intervention. Maintained on Plavix. Intolerant of aspirin therapy chronically. Intolerant of statin therapy chronically but was started on Repatha. Maintained on amlodipine/benazepril for blood pressure control and on sitagliptin for diabetes control chronically. - Acute stroke 01/21/2025 relevant to overall clinical management this hospital stay (3) Atrial fibrillation: Chronic paroxysmal atrial fibrillation managed with propafenone. Not on anticoagulation due to intolerance to both warfarin and direct oral anticoagulants. Is also unable to tolerate aspirin therapy. Is on chronic Plavix. Currently maintaining sinus rhythm. - Continue Propafenone - Continue Plavix - Telemetry monitoring Qualifiers: Atrial fibrillation type: paroxysmal Qualified Code(s): I48.0 - Paroxysmal atrial fibrillation (4) HTN (hypertension): Chronic hypertension typically managed with amlodipine/benazepril. Did require treatment with labetalol on January 21 when presented with acute stroke and was subsequently treated with TNK. - Continue 5mg amlodipine and formulary equivalent of 10mg benazepril - Monitor blood pressures Qualifiers: Hypertension type: primary hypertension Qualified Code(s): I10 - Essential (primary) hypertension (5) Hyperlipidemia: Intolerant of statin therapy. Was started on Repatha last week with first dose administered on 01/27/2025. Dizziness is not a common side effect of Repatha that I was able to identify in limited research. - On outpatient monoclonal antibody therapy - Will get lipid panel Qualifiers: Hyperlipidemia type: mixed hyperlipidemia Qualified Code(s): E78.2 - Mixed hyperlipidemia (6) Diabetes: Chronically on sitagliptin. Blood sugars thus far today 120s to 150s. Sugars may go up given pretreatment for CTA with solumedrol due to contrast allergy. - Check Hgb A1c - Sliding scale insulin as needed - Holding sitagliptan currently Qualifiers: Diabetes mellitus complication detail: with other neurological complication Diabetes mellitus complication status: with neurologic complications Diabetes mellitus fpc insulin use: without fpc use D iabetes mellitus type: type 2 Qualified Code(s): E11.49 - Type 2 diabetes mellitus with other diabetic neurological complication Plan Continue home multivitamin and magnesium Other management as noted above Managing as stroke/TIA at this point in time though limited in care VTE prophylaxis: Scds and lovenox Antibiotics: none Pending studies: CTA head and Neck read, am A1c and lipid panel Telemetry: ordered due to concern for additional cerebrovascular event and known paroxysmal atrial fibrillation [place]: not currently indicated Line(s): peripheral IVs = Disposition plan: Home with outpatient follow up to PCP, neurology and possible cardiology anticipated. Depending on clinical course, may need prescriptions for meclizine, benzodiazepine added to help with vertigo symptoms Code Status: Full Code buddymauricio would not want fpc life support Supportive care otherwise Findings, concerns and plans were discussed with patient and his and they were given an opportunity to ask questions PDMP PDMP Reviewed: Not Reviewed Attestations 2 Medical Necessity Statement*: Currently anticipate a stay less than two midnights in this gentleman presenting with sudden onset vertigo symptoms as described. He had a cerebrovascular accident treated with TNK on January 21 of this year. Current symptoms likely also cerebrovascular in nature based on currently available information though did improve with management administered in the emergency room. Plans as noted above. Diagnoses Vertigo R42 Acute stroke due to ischemia I63.9 Paroxysmal atrial fibrillation I48.0 Atrial fibrillation type: paroxysmal Primary hypertension I10 Hypertension type: primary hypertension Mixed hyperlipidemia E78.2 Hyperlipidemia type: mixed hyperlipidemia Type 2 diabetes mellitus with other neurologic complication, without long-term current use of insulin E11.49 Diabetes mellitus complication detail: with other neurological complication Diabetes mellitus complication status: with neurologic complications Diabetes mellitus ocean transportation intermediary insulin use: without ocean transportation intermediary use Diabetes mellitus type: type 2
--- NOTE | 2025-01-31 11:46 | PM.CONSULT ---
Providers/Reason For Consult Consulting Physician/Specialty*: Shahriar Hoskins MD neurology and epilepsy Reason for Consult*: Severe vertigo associated with nausea and vomiting upon awakening around 2 AM on 01/31/2025 and patient with history of right cerebral infarction with left-sided weakness involving his face arm and leg requiring intravenous tenecteplase administration 01/21/2025 and history of atrial fibrillation with inability to tolerate anticoagulation medications such as warfarin, and Eliquis secondary to reports of shortness of breath and weakness Primary Care Provider: Lance العراقي MD History of Present Illness History of Present Illness Gustavo Jhaveri is a 84 year old male with a history of atrial fibrillation treated with Plavix secondary to inability to tolerate anticoagulation type medications such as as warfarin, and Eliquis secondary to reports of shortness of breath and weakness, TIAs and right cerebral infarction manifested as left-sided weakness involving his face arm and leg requiring intravenous tenecteplase 01/21/2025. The patient presented to the [facility] emergency department on 01/31/2025 secondary to reports of severe vertigo and dizziness described as eye fluttering/nystagmus associated with a sensation that he was spinning associated with nausea and vomiting with inability to get out of bed to go to the bathroom upon awakening around 2 AM on 01/31/2025. According to the patient's , the patient did not inform her until 4 AM on 01/31/2025. NIH score = 0 Glucose = [address] 01/31/2025: IMPRESSION: 1. No acute intracranial hemorrhage or edema. 2. Mild atrophy and small vessel disease. No subacute infarct. In view of the patient's severe vertigo I recommended patient undergo CT angiogram of the head and neck to assess for large vessel occlusion in the posterior circulation and if remarkable to refer patient for thrombectomy otherwise treat patient's vertigo with Antivert and antinausea medication such as Phenergan or Zofran if no contraindications. Drug allergies: Dilaudid (hydromorphone0 type reaction unknown Influenza virus vaccine, specific, type reaction unknown Iodinated contrast medium type reaction unknown Levaquin type reaction unknown Metformin which resulted in dizziness Current medications: Plavix 75 mg p.o. daily Repatha 1 mg subcutaneously every 14 days Magnesium oxide 400 mg p.o. daily Multivitamin with folic acid with vitamin K p.o. daily Propafenone 225 mg p.o. every 8 hours Sitagliptin phosphate 100 mg p.o. daily Past medical history: Right cerebral infarction manifested left-sided weakness requiring intravenous tenecteplase 01/21/2025 Atrial fibrillation (patient reports he was unable to tolerate Eliquis or warfarin and another anticoagulation he cannot remember the name of secondary to shortness of breath and weakness) Type 2 diabetes mellitus treated with an oral agent Habits: None Family history: Negative for strokes Social history: The patient lives with his Review of Systems General: Reports: 10 or more systems reviewed and unremarkable except in HPI and below ENMT: Reports: disequilibrium Card: Reports: irregular heart rhythm (Atrial fibrillation) GI: Reports: nausea and vomiting Neuro: Reports: difficulty walking, dizziness and vertigo Medications/Allergies Home Medications ?Medication ?Instructions ?Recorded ?Confirmed ?Last Taken ?Type amlodipine 5 mg-benazepril 10 mg 1 cap PO DAILY 04/27/20 01/31/25 01/31/25 06:00 History capsule (Lotrel) clopidogrel 75 mg tablet 75 mg PO DAILY 04/27/20 01/31/25 01/31/25 06:00 History sitagliptin phosphate 100 mg 100 mg PO DAILY 04/27/20 01/31/25 01/31/25 06:00 History tablet (Januvia) aspirin 81 mg tablet,delayed 81 mg PO DAILY 01/31/25 01/31/25 Unknown History release evolocumab 140 mg/mL subcutaneous 1 mg SUBCUT Q14D 01/31/25 01/31/25 01/27/25 History pen injector (Jonathan Garcia) magnesium oxide 400 mg PO DAILY 01/31/25 01/31/25 01/31/25 06:00 History [id number] 300 mcg-K 60 1 tab PO DAILY 01/31/25 01/31/25 01/30/25 History mcg-lycop 600 mcg-lutein 300 mcg tablet (Men 50 Plus Multivitamin) propafenone 225 mg tablet 225 mg PO Q8H #270 tabs 01/31/25 01/31/25 01/31/25 06:00 Rx Allergies Allergy/AdvReac Type Severity Reaction Status Date / Time hydromorphone (From Dilaudid) Allergy Unknown Unknown Verified 11/29/24 15:34 influenza virus vaccine, Allergy Unknown Unknown Verified 11/29/24 15:34 specific Iodinated Contrast Media Allergy Unknown Unknown Verified 11/29/24 15:34 levofloxacin (From Levaquin) Allergy Unknown Unknown Verified 11/29/24 15:34 metformin AdvReac Unknown ADR-Dizzine Verified 11/29/24 15:34 ss PFSH Acute PFSH: Medical History (Updated 01/31/25 @ 12:02 by Shahriar Hoskins MD) Bladder cancer Obesity Diabetes Hyperlipidemia TIA (transient ischemic attack) ASHD (arteriosclerotic heart disease) HTN (hypertension) Atrial fibrillation intolerant of warfarin/DOACs per records so no anticoagulation, takes antiplatelet therapy Surgical History (Updated 01/31/25 @ 11:50 by Molly Roy MD) S/P cataract extraction S/P tonsillectomy H/O bone graft LEFT WRIST History of transurethral destruction of bladder lesion History of loop recorder Family History Mother , AT AGE 89 Diabetes Father , AT AGE 60 CAD (coronary artery disease) Social History Smoking and tobacco/nicotine status: heavy tobacco/nicotine user (quit 1986) Alcohol intake: never Household members: spouse Marital status: service: Yes branch: [employer] Current occupational status: retired Vitals/I&O/Wt Last Vital Signs Temp 97.7 F 01/31/25 08:10 Pulse 56 L 01/31/25 11:09 Resp 17 01/31/25 08:10 BP 114/73 01/31/25 11:09 Pulse Ox 92 01/31/25 11:09 O2 Del Method Room Air 01/31/25 11:09 Weight last 48 hrs Weight 235 lb Physical Exam Narrative: NIH score = 0 Glucose = [address] 01/31/2025: Negative for acute findings The patient is alert and oriented x 3. Speech fluent. Head normocephalic. Neck supple. Cranial nerves II through XII intact. There were no obvious nystagmus on extraocular movements. Patient did report feeling dizzy during extraocular movement testing. Motor testing 5/5 bilaterally. Deep tendon reflex revealed plantar responses flexor bilaterally. There was no clonus. Sensory examination was intact to touch. There was no extinction on double sensory stimulation. Throat clear. Lungs clear. Heart regular rhythm and rate. Extremities were negative for cyanosis Data 01/31/25 09:06 01/31/25 09:06 A&P Assessment and plan (1) Vertigo: Impression: 1. Acute onset of severe vertigo and dizziness described as eye fluttering/nystagmus associated with a sensation that he was spinning associated with nausea and vomiting with inability to get out of bed to go to the bathroom upon awakening around 2 AM on 01/31/2025 cannot rule out posterior circulation stroke. 2. History of right cerebral infarction manifested left-sided weakness involving his face arm and leg 01/21/2025 requiring intravenous tenecteplase 01/21/2025 3. Atrial fibrillation with inability to tolerate anticoagulation take medications 4. Type 2 diabetes mellitus Plan: 1. Recommend patient undergo CT angiogram of the head and neck to assess for large vessel occlusion in the vertebrobasilar artery to determine if patient is candidate for thrombectomy if no contraindications since patient reported allergy to iodinated contrast media 2. If CT angiogram of the head and neck is performed and is negative for large vessel occlusion, recommend treating patient's vertigo conservatively with Antivert 25 mg p.o. 3 times daily as needed for dizziness and consider Phenergan 12.5 mg to 25 mg every 6 hours as needed nausea vomiting or dizziness or Zofran 4 mg p.o. or IV every 6 hours as needed nausea vomiting or dizziness if no contraindication from cardiac standpoint 3. Recommend cardiac evaluation for history of atrial fibrillation and inability to tolerate anticoagulation medicine such as warfarin and Eliquis secondary to reports of shortness of breath and weakness as well as inability to tolerate low-dose aspirin with Plavix and history of right cerebral infarction requiring intravenous tenecteplase 01/21/2025 and now patient presenting with severe vertigo and possibility of posterior circulation stroke cannot be excluded 4. Fall precautions 5. Recommend occupational therapy and physical therapy consults 6. Recommend obtaining noncontrast head MRI to further assess for posterior circulation stroke 7. Neurochecks and vital signs per NIH stroke protocol 8. Stroke education and stroke pamphlet for patient and patient's (2) TIA (transient ischemic attack): PDMP PDMP Reviewed: Not Reviewed Consult Attestations Medical Necessity Statement: The patient was evaluated by neurology for severe vertigo acute in onset after awakening around 2 AM on 01/31/2025 and patient with history of atrial fibrillation, right cerebral infarction requiring tenecteplase 01/21/2025 Coding Level of Care Code 43166 Diagnoses Vertigo R42 TIA (transient ischemic attack) G45.9
[2025-01-31] MEDS: methylPREDNISolone sod succ 40 mg/mL INJ IVP (11:58)
[2025-01-31] MEDS: meclizine 25 mg tablet PO ×2 (11:58→21:09)
[2025-01-31] MEDS: LORazepam 2 mg/mL INJ 1 mL 1 MG IVP (11:58)
[2025-01-31] MEDS: diphenhydrAMINE 50 mg/mL SDV 1mL IVP (11:58)
[2025-01-31] MEDS: propafenone 150 mg Tablet 225 MG PO ×2 (13:37→21:09)
[2025-01-31] MEDS: enoxaparin 40 mg/0.4 mL Syringe SUBCUT (14:35)
[2025-01-31] MEDS: sodium chloride 0.9% 1,000 ML 100 ML IV (14:35)
[2025-01-31 16:46] LABS: Glucose Point of Care 201 mg/dL (70-110)
[2025-01-31] MEDS: insulin lispro 100 unit/1 mL SUBCUT ×2 (18:14→21:09)
[2025-01-31 20:40] LABS: Glucose Point of Care 222 mg/dL (70-110)
--- NOTE | 2025-01-31 21:49 | P.DS_ITS ---
Discharge Providers Date of Admission: 01/31/25 15:13 Date of Discharge: January 31, 2025 Attending Provider at Admission: Vivek Gurrola Attending Provider at Discharge: Vivek Gurrola Primary Care Provider: Lance العراقي MD Diagnoses at Discharge Discharge Diagnosis (1) Vertigo: Status: Acute (2) Acute stroke due to ischemia: Status: Acute (3) Atrial fibrillation: Status: Chronic Qualifiers: Atrial fibrillation type: paroxysmal Qualified Code(s): I48.0 - Paroxysmal atrial fibrillation Permanent problem details: intolerant of warfarin/DOACs per records so no anticoagulation, takes antiplatelet therapy (4) HTN (hypertension): Status: Chronic Qualifiers: Hypertension type: primary hypertension Qualified Code(s): I10 - Essential (primary) hypertension (5) Hyperlipidemia: Status: Chronic Qualifiers: Hyperlipidemia type: mixed hyperlipidemia Qualified Code(s): E78.2 - Mixed hyperlipidemia (6) Diabetes: Status: Chronic Qualifiers: Diabetes mellitus type: type 2 Diabetes mellitus terminal operator insulin use: without terminal operator use Diabetes mellitus complication status: with neurologic complications Diabetes mellitus complication detail: with other neurological complication Qualified Code(s): E11.49 - Type 2 diabetes mellitus with other diabetic neurological complication Permanent problem details: non-insulin requiring Reason for Visit Reason for Visit: stroke like symptoms Discharge Data Studies Completed and Pending Completed Studies During Hospitalization Category Date Time Status CT head thrombolytic 01488 Stat Cat Scan 01/31/25 08:15 Completed CTA head neck [CT angio headneck* [id number]] Stat Cat Scan 01/31/25 11:23 Completed Pending at discharge Category Date Time Status Hemoglobin A1C AM LABS Lab 02/01/25 04:00 Ordered Lipid Panel AM LABS Lab 02/01/25 04:00 Ordered Radiology Impressions Head CT 01/31/25 08:15 IMPRESSION: 1. No acute intracranial hemorrhage or edema. 2. Mild atrophy and small vessel disease. No subacute infarct. Head/Neck CTA 01/31/25 11:23 IMPRESSION: 1. Less than 50% stenosis cervical carotid arteries. 2. 50% stenosis due to calcified plaque to the carotid cavernous sinuses. 3. No occlusion or high-grade stenosis within the [place]. No aneurysm. 4. Small caliber but patent RIGHT vertebral artery. 5. Unremarkable [place]. Laboratory Results WBC 6.16 10^3/uL (3.29-11.43) 01/31/25 09:06 RBC 4.84 10^6/uL (3.85-5.65) 01/31/25 09:06 Hgb 16.10 g/dL (11.27-16.99) 01/31/25 09:06 Hct 46.7 % (37-53) 01/31/25 09:06 MCV 96.5 fl (82-101) 01/31/25 09:06 MCH 33.3 pg (27-33) H 01/31/25 09:06 MCHC 34.5 g/dL (30-55) 01/31/25 09:06 RDW 12.9 % (12.1-15.1) 01/31/25 09:06 Plt Count 243 10^3/cmm (157-399) 01/31/25 09:06 MPV 8.4 fL (7.4-10.4) 01/31/25 09:06 Neut % (Auto) 62.1 % 01/31/25 09:06 Lymph % (Auto) 24.5 % 01/31/25 09:06 [place] % (Auto) 10.4 % 01/31/25 09:06 Eos % (Auto) 1.9 % 01/31/25 09:06 Baso % (Auto) 0.8 % 01/31/25 09:06 Neut # (Auto) 3.82 10^3/uL (1.8-7.7) 01/31/25 09:06 Lymph # (Auto) 1.5 10^3/uL (0.8-4.8) 01/31/25 09:06 [place]att # (Auto) 0.6 10^3/uL (0.2-0.9) 01/31/25 09:06 Eos # (Auto) 0.1 10^3/uL (0.0-0.8) 01/31/25 09:06 Baso # (Auto) 0.1 10^3/uL (0.0-0.1) 01/31/25 09:06 Nucleated RBC % (auto) 0 % 01/31/25 09:06 Nucleated RBCs # 0.0 /100WBC 01/31/25 09:06 PT 12.60 SECONDS (12.1-14.9) 01/31/25 09:06 INR 0.89 (0.8-1.2) 01/31/25 09:06 APTT 27.4 SECONDS (23.9-36.7) 01/31/25 09:06 Sodium 136 mmol/L (136-145) 01/31/25 09:06 Potassium 4.3 mmol/L (3.5-5.1) 01/31/25 09:06 Chloride 102 mmol/L (98-107) 01/31/25 09:06 Carbon Dioxide 24 mmol/L (22-29) 01/31/25 09:06 Anion Gap 14.3 (5-19) 01/31/25 09:06 BUN 17 mg/dL (8-23) 01/31/25 09:06 Creatinine 1.1 mg/dL (0.7-1.2) 01/31/25 09:06 GFR Calculation Not Reportable 01/31/25 09:06 Glucose 124 mg/dL (65-115) H 01/31/25 09:06 POC Glucose 222 mg/dL (70-110) H 01/31/25 20:23 Calculated Osmolality 285 mOsm/kg (285-295) 01/31/25 09:06 Calcium 9.7 mg/dL (8.5-10.5) 01/31/25 09:06 Total Bilirubin 0.8 mg/dL (0.15-1.2) 01/31/25 09:06 AST 15 U/L (0-40) 01/31/25 09:06 ALT 13 U/L (0-41) 01/31/25 09:06 Alkaline Phosphatase 53 U/L (40-130) 01/31/25 09:06 Total Protein 7.4 g/dL (6.6-8.7) 01/31/25 09:06 Albumin 4.3 g/dL (3.5-5.2) 01/31/25 09:06 Globulin 3.1 g/dL (1.3-4.6) 01/31/25 09:06 Urine Color Yellow (Yellow) 01/31/25 08:57 Urine Appearance Clear (CLEAR) 01/31/25 08:57 Urine pH 7.5 (5-7) 01/31/25 08:57 Ur Specific [place] 1.009 (1.005-1.030) 01/31/25 08:57 Urine Protein Negative (Negative) 01/31/25 08:57 Urine Glucose (UA) Negative (Normal) 01/31/25 08:57 Urine Ketones Negative (Negative) 01/31/25 08:57 Urine Blood Negative (Negative) 01/31/25 08:57 Urine Nitrate Negative (Negative) 01/31/25 08:57 Urine Bilirubin Negative (Negative) 01/31/25 08:57 Urine Urobilinogen 0.2 mg/dL (Negative) 01/31/25 08:57 Ur Leukocyte Esterase Negative (Negative) 01/31/25 08:57 Amorphous Sediment Not Reportable 01/31/25 08:57 Urine Opiates Screen Negative ng/mL (Negative) 01/31/25 08:57 Ur Barbiturates Screen Negative ng/mL (Negative) 01/31/25 08:57 Ur Phencyclidine Scrn Negative ng/mL (Negative) 01/31/25 08:57 Ur Amphetamines Screen Negative ng/mL (Negative) 01/31/25 08:57 U Benzodiazepines Scrn Negative ng/mL (Negative) 01/31/25 08:57 Urine Cocaine Screen Negative ng/mL (Negative) 01/31/25 08:57 U Marijuana (THC) Screen Negative ng/mL (Negative) 01/31/25 08:57 Vitals Last Vital Signs Temp 98.2 F 01/31/25 20:00 Pulse 93 01/31/25 20:00 Resp 16 01/31/25 20:00 BP 102/65 01/31/25 20:00 Pulse Ox 93 01/31/25 20:00 O2 Del Method Room Air 01/31/25 20:00 Discharge Plan Discharge Patient Disposition: Home Condition: Stable Prescriptions: No Action clopidogrel 75 mg tablet 75 mg PO DAILY amlodipine-benazepril [Lotrel] 5-10 mg capsule 1 cap PO DAILY Januvia 100 mg tablet 100 mg PO DAILY propafenone 225 mg tablet 225 mg PO Q8H Qty: 270 3RF Men 50 Plus Multivitamin 392-75-392-300 mcg Tablet 1 tab PO DAILY Repatha SureClick 140 mg/mL pen injector 1 mg SUBCUT Q14D magnesium oxide 400 mg magnesium Tablet 400 mg PO DAILY Referrals: Lance العراقي MD [Primary Care Provider] - Patient Instructions: Opioid Safety Discharge Attestations Status at Discharge: Cognitive status at discharge: cognitively intact , Behavioral status at discharge: cooperative , Quality Metrics Clinical Quality Measures [ Cerebrovascular Accident { Contraindication to Antithrombotic: None; antithrombotic prescribed (plavix, cannot take aspirin); Contraindication to Anticoagulation: Drug intolerance; Contraindication to Statin: Drug intolerance; Contraindication to tPA: Medical contraindications (recently received); Reason stroke education not provided: Stroke education provided to patient; Rehab services assessed: Physical therapy, Occupational therapy, Speech therapy;}] Coding Level of Care Code Acute Code for Chg Fwd Diagnoses Vertigo R42 Acute stroke due to ischemia I63.9 Paroxysmal atrial fibrillation I48.0 Atrial fibrillation type: paroxysmal Primary hypertension I10 Hypertension type: primary hypertension Mixed hyperlipidemia E78.2 Hyperlipidemia type: mixed hyperlipidemia Type 2 diabetes mellitus with other neurologic complication, without long-term current use of insulin E11.49 Diabetes mellitus type: type 2 Diabetes mellitus skilled nursing insulin use: without terminal operator use Diabetes mellitus complication status: with neurologic complications Diabetes mellitus complication detail: with other neurological complication
[2025-02-01] VITALS (9 sets, daily range): BP systolic 105–156; BP diastolic 56–77; PULSE 53–83; RESP 16–20; TEMP 36.4–36.9; O2SAT 91–95
[2025-02-01] MEDS: propafenone 150 mg Tablet 225 MG PO ×3 (05:29→20:54)
[2025-02-01] MEDS: meclizine 25 mg tablet PO ×3 (05:29→20:53)
[2025-02-01 06:02] LABS: Chol HDL Ratio 3.39 mg/dL (1.0-5.00); Cholesterol 166 mg/dL (0-200); HDL Cholesterol 49 mg/dL (60-100); LDL Cholesterol Calculated 99 mg/dL (50-129); LDL HDL Ratio 2.02 RATIO (0.00-3.22); Triglycerides 90 mg/dL (0-150)
[2025-02-01 06:10] LABS: Estmated Average Glucose 117; Hemoglobin A1C 5.7 % (4.0-6.0)
[2025-02-01 06:34] LABS: Glucose Point of Care 135 mg/dL (70-110)
--- NOTE | 2025-02-01 09:49 | PC.NURSE ---
review coordinator rounding- visited with patient and this am 0800, they confirmed they still have the stroke education book. Answered all questions regarding tests, stroke, and symptoms. Patient states he is feeling better, headache has resolved and dizziness subsides while laying down. He hasn't walked yet today to evaluate that. Denies nausea, ate all of his breakfast this am.
--- NOTE | 2025-02-01 09:53 | PC.CHAP ---
Pastoral Care Encounter/Spiritual Assessment Type of Contact [] Declined fuel testing technician visit [] Patient/Family/Request visit [] Outpatient visit [] Follow-up visit [] Physician referral [] Code/Alert [x] Routine visit [] Staff referral [] Actively dying [] Patient sleeping [x] Family support [] [] Out of room [] Palliative care [] [] Receiving care in room [] Pre-surgical visit [] Trauma [] Long length of stay [] ICU visit [] Other: Relational/Emotional Strength [x] Patient feels connected with others/family/visitors/staff [] Distress [] Loneliness/isolation [] Abandonment Spirituality of Patient [x] Person of [place] [x] Attends Orthodox of their [place] [x] Believes in Prayer [x] Reads Bible or Jain materials [] There are Spiritual issues to be addressed Marketing Communications Specialist Interventions [x] Prayer [x] Active listening [x] Non-anxious presence [x] Spiritual/emotional support [] Crisis/trauma care [] Spiritual counseling [] Bereavement support [] Provided bereavement packet [] Provided Bible/devotional materials [] Provided toy/stuffed animal, coloring book to patient or family member [] Provided Communion [] Anointing/[place] [] Salvation [x] Completed spiritual assessment [] Other: Impact on Illness or Injury [] Angry [] Fearful [] Anxious [] Often cries [] Exhaustion [] Unable to work [] Unable to attend roman catholic [] Unable to walk/stand [] Unable to read [] Unable to drive [] Unable to eat/drink [] Unable to sleep [] Unable to be with family [] Patient intubated [] Other: Summary Time spent with patient 10 min
[2025-02-01] MEDS: clopidogrel 75 mg Tablet PO (10:40)
[2025-02-01] MEDS: amlodipine 5 mg Tablet PO (10:40)
[2025-02-01] MEDS: magnesium oxide 400 mg tablet PO (10:41)
[2025-02-01] MEDS: lisinopril 10 mg Tablet PO (10:41)
[2025-02-01] MEDS: multivitamin therapeutic Tablet 1 TAB PO (10:41)
[2025-02-01 11:20] LABS: Glucose Point of Care 126 mg/dL (70-110)
[2025-02-01] MEDS: promethazine 25 mg Tablet PO ×2 (15:29→20:53)
[2025-02-01] MEDS: enoxaparin 40 mg/0.4 mL Syringe SUBCUT (15:30)
[2025-02-01 16:38] LABS: Glucose Point of Care 163 mg/dL (70-110)
--- NOTE | 2025-02-01 16:49 | P.PN_ITS ---
Subjective 2 Subjective: Patient was planned To be discharged today, however became extremely dizzy and needed to be placed back in bed.[place] hallpike bilatrellay with no obvious nystagmus. Barbara maneuver did not have any benefit, He has been on meclizine without much relief. Medications: Reviewed: Yes Vitals/I&O/Wt Last Vital Signs Temp 97.5 F L 02/01/25 16:00 Pulse 65 02/01/25 16:00 Resp 19 H 02/01/25 16:00 BP 105/56 02/01/25 16:00 Pulse Ox 93 02/01/25 16:00 O2 Del Method Room Air 02/01/25 16:00 02/01/25 02/01/25 02/01/25 06:59 14:59 22:59 Intake Total 1120 / 1600 720 / 720 Balance 1120 / 1050 720 / 720 Weight last 48 hrs Weight 108.953 kg Weight 106.594 kg Weight 106.594 kg Physical Exam 2 Narrative: General: No acute distress, AO x3 HEENT: PERRLA, pupils bilaterally equal and reactive, pallors not present Chest: Normal vesicular breath sounds, no added sounds, equal good air entry bilaterally CVS: S1-S2 regular, no murmurs, no tachycardia, no gallops, no rubs Abdomen: Soft, nontender, no organomegaly, bowel sounds present Neuro: No focal deficits, no facial deformity, AO x3, power 5/5 in all limbs Data 01/31/25 09:06 01/31/25 09:06 A&P Assessment and plan (1) Vertigo: Sudden onset around 2 AM on January 31. Primary concern at this point in time is for additional cerebrovascular event particularly given acute stroke presenting on 01/21/2025 treated with TNK and current examination findings that do not support benign positional vertigo at this time. That said patient has had improvement in vertigo symptoms with medication management including meclizine, lorazepam (along with Benadryl and Solu-Medrol given for contrast pretreatment). If it were indicated, not a candidate for antithrombotic therapy consideration given that he received it such a short time ago. - Continue scheduled meclizine and as needed lorazepam for symptom management - Follow-up pending CTA of the head and neck - Greatly appreciate neurology input and assistance in overall management - Will proceed with PT, OT and speech evaluations - Had echocardiogram with bubble study and carotid ultrasound during admission January 21 - Continue Plavix - Intolerant of statin therapy, aspirin - Recently started on Repatha, with first dose 01/27/2025 - Check lipid panel and hemoglobin A1c (2) Acute stroke due to ischemia: Had acute stroke on 01/21/2025 treated with TNK. Symptoms included left-sided weakness which completely resolved after TNK as well as some coordination difficulties that were markedly better but not completely resolved. Did not have dizziness or nausea associated with that stroke. Clinically felt to be a right thalamic or possibly right subcortical internal capsule lacunar infarction at the time. Carotid ultrasound did not show clinically significant stenosis. Echocardiogram and bubble study did not demonstrate abnormalities necessitating intervention. Maintained on Plavix. Intolerant of aspirin therapy chronically. Intolerant of statin therapy chronically but was started on Repatha. Maintained on amlodipine/benazepril for blood pressure control and on sitagliptin for diabetes control chronically. - Acute stroke 01/21/2025 relevant to overall clinical management this hospital stay (3) Atrial fibrillation: Chronic paroxysmal atrial fibrillation managed with propafenone. Not on anticoagulation due to intolerance to both warfarin and direct oral anticoagulants. Is also unable to tolerate aspirin therapy. Is on chronic Plavix. Currently maintaining sinus rhythm. - Continue Propafenone - Continue Plavix - Telemetry monitoring Qualifiers: Atrial fibrillation type: paroxysmal Qualified Code(s): I48.0 - Paroxysmal atrial fibrillation (4) HTN (hypertension): Chronic hypertension typically managed with amlodipine/benazepril. Did require treatment with labetalol on January 21 when presented with acute stroke and was subsequently treated with TNK. - Continue 5mg amlodipine and formulary equivalent of 10mg benazepril - Monitor blood pressures Qualifiers: Hypertension type: primary hypertension Qualified Code(s): I10 - Essential (primary) hypertension (5) Hyperlipidemia: Intolerant of statin therapy. Was started on Repatha last week with first dose administered on 01/27/2025. Dizziness is not a common side effect of Repatha that I was able to identify in limited research. - On outpatient monoclonal antibody therapy - Will get lipid panel Qualifiers: Hyperlipidemia type: mixed hyperlipidemia Qualified Code(s): E78.2 - Mixed hyperlipidemia (6) Diabetes: Chronically on sitagliptin. Blood sugars thus far today 120s to 150s. Sugars may go up given pretreatment for CTA with solumedrol due to contrast allergy. - Check Hgb A1c - Sliding scale insulin as needed - Holding sitagliptan currently Qualifiers: Diabetes mellitus type: type 2 Diabetes mellitus oysterman insulin use: without oysterman use Diabetes mellitus complication status: with neurologic complications Diabetes mellitus complication detail: with other neurological complication Qualified Code(s): E11.49 - Type 2 diabetes mellitus with other diabetic neurological complication Plan Continue home multivitamin and magnesium Other management as noted above Managing as stroke/TIA at this point in time though limited in care VTE prophylaxis: Scds and lovenox Antibiotics: none Pending studies: CTA head and Neck read, am A1c and lipid panel Telemetry: ordered due to concern for additional cerebrovascular event and known paroxysmal atrial fibrillation [place]: not currently indicated Line(s): peripheral IVs = Disposition plan: Home with outpatient follow up to PCP, neurology and possible cardiology anticipated. Depending on clinical course, may need prescriptions for meclizine, benzodiazepine added to help with vertigo symptoms Code Status: Full Code [facility] would not want oysterman life support Supportive care otherwise Findings, concerns and plans were discussed with patient and his and they were given an opportunity to ask questions February 01, 2025 Continues to have persistent dizziness in spite of meclizine. On attempting to get out of bed patient needed to place right back as he was unable to safely stand. He is hesitant to return home under the circumstances. He is unable to have minimal movement. Does not think he will be able to carry out his ADLs. Will add phenargen 12.5 mg to 25 mg every 6 hours. Check orthostatics, trial of IVF fluids. PDMP PDMP Reviewed: Not Reviewed Attestations 2 Medical Necessity Statement*: persistemnt dizziness, unable to stand or perfrom any ADLs, unsafe to return home, trial of IVF, phenargan, check orthostatics Coding Level of Care Code Acute Code for [facility] Diagnoses Vertigo R42 Acute stroke due to ischemia I63.9 Paroxysmal atrial fibrillation I48.0 Atrial fibrillation type: paroxysmal Primary hypertension I10 Hypertension type: primary hypertension Mixed hyperlipidemia E78.2 Hyperlipidemia type: mixed hyperlipidemia Type 2 diabetes mellitus with other neurologic complication, without long-term current use of insulin E11.49 Diabetes mellitus type: type 2 Diabetes mellitus oysterman insulin use: without oysterman use Diabetes mellitus complication status: with neurologic complications Diabetes mellitus complication detail: with other neurological complication
[2025-02-01] MEDS: sodium chloride 0.9% 1,000 ML 50 ML IV (17:08)
[2025-02-01 20:49] LABS: Glucose Point of Care 120 mg/dL (70-110)
[2025-02-02 04:00] VITALS: BP 109/69; PULSE 48; RESP 17; TEMP 36.6; O2SAT 93
[2025-02-02] MEDS: meclizine 25 mg tablet PO ×2 (05:50→14:12)
[2025-02-02] MEDS: propafenone 150 mg Tablet 225 MG PO ×2 (05:50→14:12)
[2025-02-02] MEDS: promethazine 25 mg Tablet PO ×2 (05:50→14:12)
[2025-02-02 07:37] VITALS: BP 115/72; PULSE 50; RESP 19; TEMP 36.4; O2SAT 94
[2025-02-02 09:11] LABS: Glucose Point of Care 97 mg/dL (70-110)
--- NOTE | 2025-02-02 09:19 | PC.NURSE ---
content coordinator rounds at 0835, patient says today he has improvement with mobility in his neck and range of motion and that he is looking forward to getting up and walking today to see if his dizziness subsides.
[2025-02-02] MEDS: amlodipine 5 mg Tablet PO (09:34)
[2025-02-02] MEDS: clopidogrel 75 mg Tablet PO (09:34)
[2025-02-02] MEDS: magnesium oxide 400 mg tablet PO (09:34)
[2025-02-02] MEDS: multivitamin therapeutic Tablet 1 TAB PO (09:34)
[2025-02-02] MEDS: lisinopril 10 mg Tablet PO (09:34)
[2025-02-02 11:24] LABS: Glucose Point of Care 138 mg/dL (70-110)
[2025-02-02 11:42] VITALS: BP 120/69; PULSE 70; RESP 20; TEMP 36.7; O2SAT 95
[2025-02-02 13:50] VITALS: BP 120/69; PULSE 70; RESP 20; TEMP 36.7; O2SAT 95
--- NOTE | 2025-02-02 16:08 | PM.DCS ---
Discharge Providers Date of Admission: 02/01/25 17:00 Date of Discharge: February 02, 2025 Attending Provider at Admission: Vivek Gurrola Attending Provider at Discharge: Delaney Zhang MD Primary Care Provider: Lance العراقي MD Diagnoses at Discharge Discharge Diagnosis (1) Vertigo: Status: Acute (2) Acute stroke due to ischemia: Status: Acute (3) Atrial fibrillation: Status: Chronic Qualifiers: Atrial fibrillation type: paroxysmal Qualified Code(s): I48.0 - Paroxysmal atrial fibrillation Permanent problem details: intolerant of warfarin/DOACs per records so no anticoagulation, takes antiplatelet therapy (4) HTN (hypertension): Status: Chronic Qualifiers: Hypertension type: primary hypertension Qualified Code(s): I10 - Essential (primary) hypertension (5) Hyperlipidemia: Status: Chronic Qualifiers: Hyperlipidemia type: mixed hyperlipidemia Qualified Code(s): E78.2 - Mixed hyperlipidemia (6) Diabetes: Status: Chronic Qualifiers: Diabetes mellitus type: type 2 Diabetes mellitus assisted insulin use: without assisted use Diabetes mellitus complication status: with neurologic complications Diabetes mellitus complication detail: with other neurological complication Qualified Code(s): E11.49 - Type 2 diabetes mellitus with other diabetic neurological complication Permanent problem details: non-insulin requiring Reason for Visit Reason for Visit: stroke like symptoms Hospital Course Hospital Course Gustavo Jhaveri is a 84-year-old gentleman gentleman with a history of atrial fibrillation and previous stroke presents to the ER with dizziness. He was previously hospitalized on January 21 for left-sided weakness and coordination difficulties, managed as a stroke alert, and received antithrombotic therapy. He improved and was discharged the following day. Since discharge, he had been doing well until 2 AM on 01/31 when he experienced severe dizziness, nausea, and difficulty focusing his eyes. In the ER, he received Ativan and Meclizine for dizziness and nausea. A CT of the head showed no acute intracranial hemorrhage or edema, but mild atrophy and small vessel disease were noted. Neurology was consulted, and a CTA of the head and neck was recommended by Dr Hoskins. He has a contrast allergy, so he was pre-treated with Solu-Medrol and Benadryl. CTA was negative any major vessel occlusion. He has a history of atrial fibrillation, but is intolerant to warfarin, DOAC's he has tried, aspirin which caused significant drop in blood pressure. Only antiplatelet therapy is clopidogrel. He declined starting any anticoagulation on this admission. He was admitted in observation due to his concerning neurological symptoms. He was started on a trial of meclizine 25 mg p.o. 3 times daily initially however this did not improve his symptoms significantly. He continued to remain dizzy to the point of being unable to get out of bed or perform any ADLs. Orthostatic vital signs were negative for any significant drop. The next day, trial Phenergan 12.5 mg p.o. every 8 hours was given and patient seemed to do better with this. Today his dizziness is significantly improved. He was able to ambulate with physical therapy. Walker is recommended for ambulation for overall stability. He is able to perform his ADLs, transfer out of bed to chair etc. Ernesto-Hallpike and Barbara's maneuver were completed without any reproducible nystagmus or change in symptoms since his dizziness is much improved today, he is discharged with recommendations to continue Phenergan and and as needed meclizine at home. Follow-up with neurology in 2 weeks.Retrun to ER if symptoms worsen. Physical Exam Narrative: General: No acute distress, AO x3 HEENT: PERRLA, pupils bilaterally equal and reactive, pallors not present Chest: Normal vesicular breath sounds, no added sounds, equal good air entry bilaterally CVS: S1-S2 regular, no murmurs, no tachycardia, no gallops, no rubs Abdomen: Soft, nontender, no organomegaly, bowel sounds present Neuro: No focal deficits, no facial deformity, AO x3, power 5/5 in all limbs Discharge Data Studies Completed and Pending Completed Studies During Hospitalization Category Date Time Status CT head thrombolytic 75190 Stat Cat Scan 01/31/25 08:15 Completed CTA head neck [CT angio headneck* [id number]] Stat Cat Scan 01/31/25 11:23 Completed Radiology Impressions Head CT 01/31/25 08:15 IMPRESSION: 1. No acute intracranial hemorrhage or edema. 2. Mild atrophy and small vessel disease. No subacute infarct. Head/Neck CTA 01/31/25 11:23 IMPRESSION: 1. Less than 50% stenosis cervical carotid arteries. 2. 50% stenosis due to calcified plaque to the carotid cavernous sinuses. 3. No occlusion or high-grade stenosis within the [place]. No aneurysm. 4. Small caliber but patent RIGHT vertebral artery. 5. Unremarkable [place]. Laboratory Results WBC 6.16 10^3/uL (3.29-11.43) 01/31/25 09:06 RBC 4.84 10^6/uL (3.85-5.65) 01/31/25 09:06 Hgb 16.10 g/dL (11.27-16.99) 01/31/25 09:06 Hct 46.7 % (37-53) 01/31/25 09:06 MCV 96.5 fl (82-101) 01/31/25 09:06 MCH 33.3 pg (27-33) H 01/31/25 09:06 MCHC 34.5 g/dL (30-55) 01/31/25 09:06 RDW 12.9 % (12.1-15.1) 01/31/25 09:06 Plt Count 243 10^3/cmm (157-399) 01/31/25 09:06 MPV 8.4 fL (7.4-10.4) 01/31/25 09:06 Neut % (Auto) 62.1 % 01/31/25 09:06 Lymph % (Auto) 24.5 % 01/31/25 09:06 Bell % (Auto) 10.4 % 01/31/25 09:06 Eos % (Auto) 1.9 % 01/31/25 09:06 Baso % (Auto) 0.8 % 01/31/25 09:06 Neut # (Auto) 3.82 10^3/uL (1.8-7.7) 01/31/25 09:06 Lymph # (Auto) 1.5 10^3/uL (0.8-4.8) 01/31/25 09:06 Bell # (Auto) 0.6 10^3/uL (0.2-0.9) 01/31/25 09:06 Eos # (Auto) 0.1 10^3/uL (0.0-0.8) 01/31/25 09:06 Baso # (Auto) 0.1 10^3/uL (0.0-0.1) 01/31/25 09:06 Nucleated RBC % (auto) 0 % 01/31/25 09:06 Nucleated RBCs # 0.0 /100WBC 01/31/25 09:06 PT 12.60 SECONDS (12.1-14.9) 01/31/25 09:06 INR 0.89 (0.8-1.2) 01/31/25 09:06 APTT 27.4 SECONDS (23.9-36.7) 01/31/25 09:06 Sodium 136 mmol/L (136-145) 01/31/25 09:06 Potassium 4.3 mmol/L (3.5-5.1) 01/31/25 09:06 Chloride 102 mmol/L (98-107) 01/31/25 09:06 Carbon Dioxide 24 mmol/L (22-29) 01/31/25 09:06 Anion Gap 14.3 (5-19) 01/31/25 09:06 BUN 17 mg/dL (8-23) 01/31/25 09:06 Creatinine 1.1 mg/dL (0.7-1.2) 01/31/25 09:06 GFR Calculation Not Reportable 01/31/25 09:06 Glucose 124 mg/dL (65-115) H 01/31/25 09:06 POC Glucose 138 mg/dL (70-110) H 02/02/25 11:05 Estimat Average Glucose 117 02/01/25 05:16 Hemoglobin A1c 5.7 % (4.0-6.0) 02/01/25 05:16 Calculated Osmolality 285 mOsm/kg (285-295) 01/31/25 09:06 Calcium 9.7 mg/dL (8.5-10.5) 01/31/25 09:06 Total Bilirubin 0.8 mg/dL (0.15-1.2) 01/31/25 09:06 AST 15 U/L (0-40) 01/31/25 09:06 ALT 13 U/L (0-41) 01/31/25 09:06 Alkaline Phosphatase 53 U/L (40-130) 01/31/25 09:06 Total Protein 7.4 g/dL (6.6-8.7) 01/31/25 09:06 Albumin 4.3 g/dL (3.5-5.2) 01/31/25 09:06 Globulin 3.1 g/dL (1.3-4.6) 01/31/25 09:06 Triglycerides 90 mg/dL (0-150) 02/01/25 05:16 Cholesterol 166 mg/dL (0-200) 02/01/25 05:16 LDL Cholesterol, Calc 99 mg/dL (50-129) 02/01/25 05:16 HDL Cholesterol 49 mg/dL (60-100) L 02/01/25 05:16 LDL/HDL Ratio 2.02 RATIO (0.00-3.22) 02/01/25 05:16 Cholesterol/HDL Ratio 3.39 mg/dL (1.0-5.00) 02/01/25 05:16 Urine Color Yellow (Yellow) 01/31/25 08:57 Urine Appearance Clear (CLEAR) 01/31/25 08:57 Urine pH 7.5 (5-7) 01/31/25 08:57 Ur Specific [place] 1.009 (1.005-1.030) 01/31/25 08:57 Urine Protein Negative (Negative) 01/31/25 08:57 Urine Glucose (UA) Negative (Normal) 01/31/25 08:57 Urine Ketones Negative (Negative) 01/31/25 08:57 Urine Blood Negative (Negative) 01/31/25 08:57 Urine Nitrate Negative (Negative) 01/31/25 08:57 Urine Bilirubin Negative (Negative) 01/31/25 08:57 Urine Urobilinogen 0.2 mg/dL (Negative) 01/31/25 08:57 Ur Leukocyte Esterase Negative (Negative) 01/31/25 08:57 Amorphous Sediment Not Reportable 01/31/25 08:57 Urine Opiates Screen Negative ng/mL (Negative) 01/31/25 08:57 Ur Barbiturates Screen Negative ng/mL (Negative) 01/31/25 08:57 Ur Phencyclidine Scrn Negative ng/mL (Negative) 01/31/25 08:57 Ur Amphetamines Screen Negative ng/mL (Negative) 01/31/25 08:57 U Benzodiazepines Scrn Negative ng/mL (Negative) 01/31/25 08:57 Urine Cocaine Screen Negative ng/mL (Negative) 01/31/25 08:57 U Marijuana (THC) Screen Negative ng/mL (Negative) 01/31/25 08:57 Vitals Last Vital Signs Temp 98.0 F 02/02/25 13:50 Pulse 70 02/02/25 13:50 Resp 20 H 02/02/25 13:50 BP 120/69 02/02/25 13:50 Pulse Ox 95 02/02/25 13:50 O2 Del Method Room Air 02/02/25 11:42 Discharge Plan Discharge Patient Disposition: Home Condition: Stable Prescriptions: New meclizine 25 mg Tablet 25 mg PO Q8H PRN (Reason: dizziness) 10 Days Qty: 30 0RF promethazine 25 mg Tablet 25 mg PO Q8H PRN (Reason: dizziness) 10 Days Qty: 30 0RF Continued clopidogrel 75 mg tablet 75 mg PO DAILY amlodipine-benazepril [Lotrel] 5-10 mg capsule 1 cap PO DAILY Januvia 100 mg tablet 100 mg PO DAILY propafenone 225 mg tablet 225 mg PO Q8H Qty: 270 3RF Men 50 Plus Multivitamin [id number] mcg Tablet 1 tab PO DAILY Repatha SureClick 140 mg/mL pen injector 1 mg SUBCUT Q14D magnesium oxide 400 mg magnesium Tablet 400 mg PO DAILY Discharge Orders: Discharge Order (Routine); Ordered 02/02/25 Ordered By: Delaney Zhang Other Ambulatory Orders: DME: [facility] (Order) Location: None Selected Ordered By: Delaney Zhang [place] [facility] [place] Shahriar Hoskins MD [Physician] - 05/11/25 11:00 am (stroke follow up ) Lance العراقي MD [Primary Care Provider] - 02/15/25 8:45 am Discharge Diet: Usual diet Discharge Activity: Resume usual activity Patient Instructions: Dizziness (GEN), Opioid Safety, Stroke Stoplight Discharge Attestations Time Spent in Discharge Care*: greater than 30 min Status at Discharge: Cognitive status at discharge: cognitively intact, Behavioral status at discharge: cooperative, Quality Metrics Clinical Quality Measures [ No reported AMI, CVA or VTE this stay] Coding Level of Care Code Acute Code for [facility] Diagnoses Vertigo R42 Acute stroke due to ischemia I63.9 Paroxysmal atrial fibrillation I48.0 Atrial fibrillation type: paroxysmal Primary hypertension I10 Hypertension type: primary hypertension Mixed hyperlipidemia E78.2 Hyperlipidemia type: mixed hyperlipidemia Type 2 diabetes mellitus with other neurologic complication, without long-term current use of insulin E11.49 Diabetes mellitus type: type 2 Diabetes mellitus termite exterminator insulin use: without termite exterminator use Diabetes mellitus complication status: with neurologic complications Diabetes mellitus complication detail: with other neurological complication
== END 2025-02-02 14:00 | disposition home or self-care (01) | DRG 149 ==
LOC: ER 08:43 → MEDSURG 15:13
PROVIDERS: Hospitalist; Admitting Provider Internal Medicine; Emergency Provider Family Medicine; PCP Family Medicine; Visit Provider Student in an Organized Health Care Education/Training Program
DX: R42 Dizziness and giddiness (principal); I48.20 Chronic atrial fibrillation, unspecified; I10 Essential (primary) hypertension; E78.5 Hyperlipidemia, unspecified; E11.9 Type 2 diabetes mellitus without complications; I25.10 Atherosclerotic heart disease of native coronary artery without angina pectoris; Z79.02 Long term (current) use of antithrombotics/antiplatelets; Z86.73 Personal history of transient ischemic attack (TIA), and cerebral infarction without residual deficits; Z79.84 Long term (current) use of oral hypoglycemic drugs; Z87.891 Personal history of nicotine dependence
CPT/HCPCS: 36415; 36416; 70450; 70496; 70498; 80053; 80061; 80306; 81003; 82962; 83036; 85025; 85610; 85730; 92523; 92610; 93005; 96372; 96374; 96375; 97110; 97116; 97161; 97165; 97530; 99285; G0378; J1200; J1650; J1815; J2060; J2919; J7030; J8597; Q0169

== ENCOUNTER → 2025-08-29 13:29 | Outpatient (BNVA) | payer MEDICARE, OTHER, SELFPAY | PROVIDERS: PCP Family Medicine; Visit Provider Internal Medicine | DX: I48.91 Unspecified atrial fibrillation (principal); Z86.73 Personal history of transient ischemic attack (TIA), and cerebral infarction without residual deficits | CPT/HCPCS: 99214 ==